=== PATIENT | female | born 2000 | race Caucasian/White ===

== ENCOUNTER 2020-03-21 20:03 | Emergency (ER) | payer MEDICAID, SELFPAY ==
[2020-03-21 20:21] VITALS: BP 106/70; PULSE 86; RESP 14; TEMP 36.8; O2SAT 100; BMI 23.1
[2020-03-21 20:40] LABS: Add Urine Microscopic? NO
[2020-03-21 20:45] VITALS: BP 101/62; PULSE 74; RESP 16; O2SAT 98
[2020-03-21 20:46] LABS: Bilirubin Urine Neg (Negative); Blood Urine Neg (Negative); Glucose Urine UA Norm (Normal); Ketones Urine Negative (Negative); Leukocyte Esterase Urine Negative (Negative); Nitrate Urine Negative (Negative); Protein Urine Neg (Negative); Specific Gravity, Urine 1.015 (1.005-1.030); Urine Appearance Clear (CLEAR); Urine Color Yellow (Yellow); Urobilinogen Urine 1 mg/dL (Negative); pH Urine 7 (5-7)
[2020-03-21 20:47] LABS: Basophils % 0.2 %; Eosinophils # 0.1 10^3/uL (0.0-0.8); Eosinophils % 1.1 %; Hematocrit 33.3 % (37.0-47.0); Hemoglobin 10.9 g/dL (11.5-15.3); Lymphocytes # 1.8 10^3/uL (0.8-4.8); Lymphocytes % 21.7 %; Mean Corpuscular HGB Conc 32.7 g/dL (30.0-36.0); Mean Corpuscular Hemoglobin 29.1 pg (28.0-34.0); Mean Corpuscular Volume 88.8 fL (81-99); Mean Platelet Volume 9.9 fL (7.4-10.4); Monocytes # 0.5 10^3/uL (0.2-0.9); Monocytes % 5.6 %; Neutrophils # 5.97 10^3/uL (1.8-7.7); Nucleated Red Blood Cells % 0 %; Platelet Count 300 10^3/cmm (130-400); Red Blood Count 3.75 10^6/uL (4.1-5.3); Red Cell Distribution Width 13.2 % (12.1-15.1); White Blood Count 8.4 10^3/uL (4.0-10.0)
--- NOTE | 2020-03-21 20:55 | ED_ITS ---
HPI - Abdominal Pain General: Chief Complaint: Abdominal Pain Stated Complaint: 17 weeks preg?? Time Seen by Provider: 03/21/20 20:28 Source: patient Mode of arrival: ambulatory Limitations: no limitations History of Present Illness: HPI narrative: 19-year-old female who states she is currently 18 weeks . She states she has had some lower abdomen cramping she rates it a 3 out of 10. She states she has had some clear discharge and increased urination today. She denies any fever. She denies any vaginal bleeding. Denies any vomiting or diarrhea. Associated Symptoms: Denies chills, diarrhea, dysuria, fever(s), nausea and vomiting Related Data: Date of Last Menstrual Period: 11/09/19 Review of Systems Const: Denies: fever(s), chills, body aches or change in appetite Eyes: Denies: blurry vision or eye discomfort ENMT: Denies: throat pain or dental pain Card: Denies: chest pain Resp: Denies: dyspnea GI: Denies: abdominal pain, nausea, vomiting or diarrhea : Denies: dysuria Musc: Denies: neck pain or back pain Skin/Breast: Denies: rash Neuro: Denies: headache(s) Psych: Denies: depression Ronnie/Lymph: Denies: easy bruising All/Imm: Denies: urticaria [facility] ED Female Reproductive History: Date of last menstrual period: 11/09/19 : 3 Physical Exam Const: COMMON NORMALS: no acute distress, patient oriented x3 and healthy appearing HENMT: COMMON NORMALS: normocephalic and atraumatic HEAD & SCALP: normocephalic and atraumatic Eye: COMMON NORMALS: Equal, round and reactive pupils present and EOMs intact bilaterally PUPIL: Yes Equal, round and reactive pupils present Neck/C-Spine: COMMON NORMALS: full ROM and supple Chest: COMMONS NORMALS: normal inspection of the chest and normal palpation of entire chest wall Resp: COMMON NORMALS: normal respiratory effort, No retractions, No use of accessory muscles and clear to auscultation bilaterally AUSCULTATION: clear to auscultation bilaterally Cardio: COMMON NORMALS: regular rate, regular rhythm and No murmurs present (Cardio) RATE: regular rate RHYTHM: regular rhythm GI: COMMON NORMALS: Normal to inspection, nondistended, normoactive bowel sounds present, Soft to palpation, non-tender and no masses PALPATION: Yes Soft to palpation OTHER: gravid uterus Extremity: COMMON NORMALS: normal to inspection and full ROM Neuro: COMMON NORMALS: patient oriented x3, moves all extremities and no focal motor deficits Psych: COMMON NORMALS: mental status grossly normal, Normal thought process present and cooperative THOUGHT PROCESS: Normal thought process present Skin: COMMON NORMALS: no rashes or lesions noted and no wounds GENERAL SKIN EXAM: no rashes or lesions noted Course Vital Signs: Vital signs: Vital Signs Temperature 98.3 F 03/21/20 20:21 Pulse Rate 74 03/21/20 20:45 Respiratory Rate 16 03/21/20 20:45 Blood Pressure 101/62 03/21/20 20:45 Pulse Oximetry 98 03/21/20 20:45 MDM - Abdominal Pain MDM Narrative: Medical decision making narrative: Patient presents with abdominal pain and that is likely round ligament pain. Her bedside ultrasound shows an IUP consistent with dates. Her blood work and urinalysis h ere is normal. She has no signs of appendicitis. She is stable for discharge and is to follow-up with her OB and return if worsening. Lab Data: Labs: Lab Results 03/21/20 03/21/20 03/21/20 Range/Units 20:30 20:40 20:40 WBC 8.4 (4.0-10.0) 10^3/ uL RBC 3.75 L (4.1-5.3) 10^6/u L Hgb 10.9 L (11.5-15.3) g/dL Hct 33.3 L (37.0-47.0) % MCV 88.8 (81-99) fL MCH 29.1 (28.0-34.0) pg MCHC 32.7 (30.0-36.0) g/dL RDW 13.2 (12.1-15.1) % Plt Count 300 (130-400) 10^3/c mm MPV 9.9 (7.4-10.4) fL Neut % (Auto) 71.0 % Lymph % (Auto) 21.7 % Meriwether % (Auto) 5.6 % Eos % (Auto) 1.1 % Baso % (Auto) 0.2 % Neut # (Auto) 5.97 (1.8-7.7) 10^3/u L Lymph # (Auto) 1.8 (0.8-4.8) 10^3/u L Meriwether # (Auto) 0.5 (0.2-0.9) 10^3/u L Eos # (Auto) 0.1 (0.0-0.8) 10^3/u L Baso # (Auto) 0.0 (0.0-0.1) 10^3/u L Nucleated RBC % (a uto) 0 % Nucleated RBCs # 0.0 /100WBC Sodium 137 (136-145) mmol/L Potassium 4.3 (3.5-5.1) mmol/L Chloride 103 (98-107) mmol/L Carbon Dioxide 24 (22-29) mmol/L Anion Gap 14.3 (5-19) BUN 11 (6-20) mg/dL Creatinine 0.6 (0.5-0.9) mg/dL GFR Calculation 126.2 (90-130) mL/min Glucose 92 (65-115) mg/dL Calcium 9.4 (8.5-10.5) mg/dL Total Bilirubin 0.2 (0.15-1.2) mg/dL AST 11 (0-32) U/L ALT 7 (0-33) U/L Alkaline Phosphata se 58 (35-105) IU/L Total Protein 6.7 (6.6-8.7) g/dL Albumin 3.7 (3.5-5.2) g/dL Globulin 3.0 (1.3-4.6) g/dL Ser , [place] [address].00 mIU/mL Urine Color Yellow (Yellow) Urine Appearance Clear (CLEAR) Urine pH 7 (5-7) Ur Specific Gravit y 1.015 (1.005-1.030) Urine Protein Neg (Negative) Urine Glucose (UA) Norm (Normal) Urine Ketones Negative (Negative) Urine Blood Neg (Negative) Urine Nitrate Negative (Negative) Urine Bilirubin Neg (Negative) Urine Urobilinogen 1 H (Negative) mg/dL Ur Leukocyte Elizabeth ase Negative (Negative) Discharge Plan Discharge Patient Disposition: Home Clinical Impression: Abdominal pain during Qualifiers: Trimester: second trimester Qualified Code(s): O26.892 - Other specified related conditions, second trimester Condition: Stable Discharge Orders: Discharge Order (Routine); Ordered 03/21/20 Ordered By: Antonieta Bolaños Referrals: Christina Bunch MD [Primary Care Provider] - 1-3 days Discharge Diet: Advance as tolerated Discharge Activity: Resume usual activity Patient Instructions: Abdominal Pain (ED) Coding Level of Care Code ED Financial Services Officer for Chg Fwd Exam Comprehensive
[2020-03-21 21:20] LABS: Alanine Aminotransferase 7 U/L (0-33); Albumin Level 3.7 g/dL (3.5-5.2); Alkaline Phosphatase 58 IU/L (35-105); Anion Gap 14.3 (5-19); Aspartate Amino Transferase 11 U/L (0-32); Blood Urea Nitrogen 11 mg/dL (6-20); Calcium 9.4 mg/dL (8.5-10.5); Carbon Dioxide 24 mmol/L (22-29); Chloride 103 mmol/L (98-107); Glomerular Filtration Rate 126.2 mL/min (90-130); Glucose 92 mg/dL (65-115); Osmolality Calculated 283 mOsm/kg (285-295); Potassium 4.3 mmol/L (3.5-5.1); Sodium 137 mmol/L (136-145); Total Bilirubin 0.2 mg/dL (0.15-1.2); Total Protein 6.7 g/dL (6.6-8.7)
== END 2020-03-21 21:28 | disposition home or self-care (01) ==
PROVIDERS: Physician Assistant; Emergency Provider Emergency Medicine; PCP Obstetrics & Gynecology
DX: O26.892 Other specified pregnancy related conditions, second trimester (principal); R10.9 Unspecified abdominal pain; Z3A.18 18 weeks gestation of pregnancy
CPT/HCPCS: 12345; 80053; 81003; 84702; 85025; 99282

== ENCOUNTER → 2020-05-02 10:16 | Outpatient (BNVA) | payer MEDICAID, SELFPAY | PROVIDERS: PCP Obstetrics & Gynecology; Visit Provider Nurse Practitioner Family | DX: J02.9 Acute pharyngitis, unspecified (principal); J06.9 Acute upper respiratory infection, unspecified; B96.89 Other specified bacterial agents as the cause of diseases classified elsewhere | CPT/HCPCS: 87071; 87880 ==

== ENCOUNTER 2020-05-11 08:45 | Outpatient (CLI) | payer MEDICAID, SELFPAY ==
[2020-05-11 08:45] VITALS: RESP 18; TEMP 36.6; BMI 23.0
[2020-05-11 09:04] VITALS: BP 87/64; PULSE 70
[2020-05-11 09:34] VITALS: BP 93/62; PULSE 68
[2020-05-11] MEDS: alum-mag-hydroxide-sime 30 mL UDC PO (09:35)
[2020-05-11 09:56] VITALS: BP 93/62; PULSE 68
== END 2020-05-11 09:50 | disposition home or self-care (01) ==
LOC: OPOB 08:56 → OBGYN 08:57
PROVIDERS: PCP Obstetrics & Gynecology; Visit Provider Family Medicine
DX: O26.899 Other specified pregnancy related conditions, unspecified trimester (principal); Z3A.00 Weeks of gestation of pregnancy not specified; R10.9 Unspecified abdominal pain
CPT/HCPCS: 99211

== ENCOUNTER 2020-06-27 20:58 | Outpatient (CLI) | payer MEDICAID, SELFPAY ==
--- NOTE | 2020-06-27 21:41 | US_ITS ---
WS: [id number] ULTRASOUND OB LIMITED TECHNIQUE: Limited ultrasound examination of the fetus. CLINICAL INFORMATION: Decreased Movement - Low Baseline COMPARISON: None. FINDINGS: Cervix measures 4.2 cm Single interuterine gestation. presentation is cephalic Placental location is anterior. Placenta grade: 0. heart rate 131 BPM. Normal BRIE 11.7 cm Gestational age 31 weeks 6 days. Estimated delivery August 23, 2020 Biophysical profile 8 out of 8. breathin movement: 2 tone: 2 Amniotic fluid: 2 IMPRESSION 1. Normal biophysical profile 8 out of 8 2. Cervix measures 4.2 cm
[2020-06-27 22:10] VITALS: BMI 24.3
[2020-06-27 22:39] LABS: Bilirubin Urine Neg (Negative); Blood Urine Neg (Negative); Glucose Urine UA Norm (Normal); Ketones Urine 1+ (Negative); Nitrate Urine Negative (Negative); Protein Urine Neg (Negative); Specific Gravity, Urine 1.015 (1.005-1.030); Sulfosalicylic Acid Urine Negative (Negative); Urine Appearance Cloudy (CLEAR); Urine Color Yellow (Yellow); pH Urine 8 (5-7)
[2020-06-27 22:40] LABS: Leukocyte Esterase Urine Negative (Negative); Urobilinogen Urine 4 mg/dL (Negative)
[2020-06-27 22:43] LABS: Add Urine Culture? No; Amorphous Sediment Urine 2+ /hpf; Bacteria Urine 1+ /hpf; RBC Urine RARE /hpf (0-2); WBC Urine 0-4 /hpf (0-5)
[2020-06-27 23:00] VITALS: RESP 16; TEMP 36.9
== END 2020-06-27 23:05 | disposition home or self-care (01) ==
LOC: OPOB 21:03 → OBGYN 21:04
PROVIDERS: PCP Obstetrics & Gynecology; Visit Provider Family Medicine
DX: O36.8190 Decreased fetal movements, unspecified trimester, not applicable or unspecified (principal); Z3A.00 Weeks of gestation of pregnancy not specified
CPT/HCPCS: 59025; 76815; 76819; 81001; 99211

== ENCOUNTER 2022-02-17 03:47 | Emergency (ER) | payer BC, MEDICAID, SELFPAY ==
[2022-02-17 03:47] VITALS: BP 130/80; PULSE 89; RESP 18; TEMP 36.8; O2SAT 99; BMI 21.4
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
[2022-02-17 05:12] VITALS: BP 114/73; PULSE 96; RESP 16; O2SAT 97
--- NOTE | 2022-02-17 12:27 | DCPLANNER ---
Addendum entered by Margi Kamara 02/24/22 08:49: Patient had a follow up appointment scheduled for a clinical assessment on 02.22.22 - patient did not attend appointment. Patient had a follow up appointment scheduled for a phone assessment on 02.20.22 for therapy - patient did attend appointment. Original Note: revenue manager had message to schedule a follow up appointment with [facility]. revenue manager sent an email to Deisi Holcomb at [facility] for depression. Patients information will be printed and reviewed. Clinic will call patient with appointment information.
--- NOTE | 2022-03-24 12:22 | PC.NURSE ---
PT CALLED AND REQUESTED A WORK NOTE FOR PERMISSION TO RETURN TO WORK D/T HER JOB THREATENING HER WITH TERMINATION. PT ASKED THAT NOTE BE FAXED TO [phone]. PATIENT GAVE VERBAL PERMISSION FOR FAX TO BE SENT. ON 03/24/2022
== END 2022-02-17 05:14 | disposition home or self-care (01) ==
PROVIDERS: Emergency Provider Emergency Medicine; PCP Obstetrics & Gynecology
DX: F32.A Depression, unspecified (principal)
CPT/HCPCS: 99283

== ENCOUNTER 2022-07-11 13:54 | Emergency (ER) | payer BC, MEDICAID, SELFPAY ==
[2022-07-11 14:29] VITALS: BP 106/62; PULSE 69; RESP 18; TEMP 36.4; O2SAT 100; BMI 20.5
--- NOTE | 2022-07-11 15:30 | W.ED.HA ---
HPI - Headache General: Chief Complaint: Headache Stated Complaint: headache Time Seen by Provider: 07/11/22 15:19 History of Present Illness: Patient is a 22-year-old female comes to the ED with migraine headache. Patient states she has a history of migraine headaches and this headache is just like her past migraine headaches. Headache started today when she woke up. Pain is located in the top of her head. She rates her headache 8 out of 10. She endorses photophobia. She has been having nausea and has had multiple episodes of emesis today. She has not taken any as needed medications for headaches today. Denies any vision changes, numbness or tingling or weakness to 1 side of her body or face. Patient denies any chance of being and has nexaplanon implant for control. Associated symptoms: Reports nausea and vomiting; Deny chest pain, fever(s) or rash Review of Systems Const: Denies: fever(s), chills or fatigue Eyes: Reports: photophobia; Denies: change in vision or eye discomfort ENMT: Denies: throat pain, odynophagia, nasal discharge or nasal congestion Card: Denies: chest pain, palpitations, edema, swelling of feet/ankles, dyspnea on exertion or orthopnea Resp: Denies: dyspnea, productive cough or non-productive cough GI: Reports: nausea and vomiting; Denies: abdominal pain, diarrhea, constipation or hematochezia : Denies: flank pain, dysuria or hematuria Musc: Denies: neck pain, back pain or extremity swelling Skin/Breast: Denies: rash or new lesions Neuro: Reports: headache(s); Denies: numbness in extremities or weakness in extremities [facility] ED PFSH: Medical History Migraines No pertinent family history Social History Smoking and tobacco status: never smoked Female Reproductive History: Date of last menstrual period: 11/09/19 Physical Exam Const: COMMON NORMALS: no acute distress, patient oriented x3 and alert GENERAL APPEARANCE: cooperative HENMT: COMMON NORMALS: normocephalic HEAD & SCALP: normocephalic MOUTH: Normal oral and palatal mucosa present THROAT: posterior oropharynx normal and uvula midline Eye: COMMON NORMALS: Equal, round and reactive pupils present and EOMs intact bilaterally GENERAL EYE: appearance normal, both eyes and all related structures PUPIL: Yes Equal, round and reactive pupils present Neck/C-Spine: COMMON NORMALS: supple GENERAL: Yes normal visual inspection Lymph: LYMPHATIC: no lymphadenopathy noted Resp: COMMON NORMALS: normal respiratory effort, No retractions, No use of accessory muscles and clear to auscultation bilaterally AUSCULTATION: clear to auscultation bilaterally Cardio: COMMON NORMALS: regular rate, regular rhythm, S1 normal heart sound present, S2 normal heart sound present, No gallops present (Cardio), No clicks present (Cardio), No murmurs present (Cardio) and Peripheral pulses 2+ throughout RATE: regular rate RHYTHM: regular rhythm HEART SOUNDS: S1 normal heart sound present and S2 normal heart sound present PERIPHERAL PULSES: Peripheral pulses 2+ throughout GI: COMMON NORMALS: Normal to inspection, nondistended, normoactive bowel sounds present, Soft to palpation, non-tender and no masses PALPATION: Yes Soft to palpation : COMMON NORMALS: Yes no CVA tenderness BLADDER/KIDNEY EXAM: Yes no CVA tenderness Back/Pelvis: COMMON NORMALS: no CVA tenderness Extremity: GENERAL: Yes normal exam except as noted Neuro: COMMON NORMALS: patient oriented x3, CN's II-XII intact bilaterally, moves all extremities, no focal motor deficits and no sensory deficits noted SENSORIUM/ORIENTATION: Yes alert COORDINATION/BALANCE: [id number] test normal SPEECH: speech normal SENSORY EXAM: Yes extremities (intact) MOTOR EXAM: 5/5 motor strength present throughout COORDINATION: [id number] test normal Skin: COMMON NORMALS: no rashes or lesions noted GENERAL SKIN EXAM: no rashes or lesions noted and dry skin Course Vital Signs: Vital signs: Vital Signs Temperature 97.6 F 07/11/22 14:29 Pulse Rate 69 07/11/22 14:29 Respiratory Rate 18 07/11/22 14:29 Blood Pressure 106/62 07/11/22 14:29 Pulse Oximetry 100 07/11/22 14:29 Oxygen Delivery Me thod 07/11/22 14:29 MDM - Headache Medical Decision Making Patient is a 22-year-old female comes to the ED with migraine headache. Patient states she has a history of migraine headaches and this headache is just like her past migraine headaches. Headache started today when she woke up. Pain is located in the top of her head. She rates her headache 8 out of 10. She endorses photophobia. She has been having nausea and has had multiple episodes of emesis today. Denies any neurodeficits. Vitals are stable. Exam of patient is benign. Patient was given IV migraine cocktail and her headache improved greatly. She is ready to go home and rest. She is diagnosed with migraine headache and was stable for discharge home. Told to follow-up with PCP in the next 5 to 7 days for reevaluation. Return to ED precautions given. Patient understood and agreed with plan. Discharge Plan Discharge Patient Disposition: Home Clinical Impression: Migraine headache Qualifiers: Migraine type: unspecified Status migrainosus presence: without status migrainosus Intractability: not intractable Qualified Code(s): G43.909 - Migraine, unspecified, not intractable, without status migrainosus Condition: Stable Prescriptions: No Action prenat.vits,garrett,[id number]-acwnl Tablet 1 tab PO DAILY Lexapro 10 mg tablet 10 mg PO DAILY Qty: 60 0RF Discharge Orders: Discharge ED (Routine); Ordered 07/11/22 Ordered By: Crow Ortiz Referrals: Christina Bunch MD [Primary Care Provider] - Discharge Diet: Regular Discharge Activity: Increase activity as tolerated Patient Instructions: Migraine Headache (ED) Activity Restrictions/Additional Instructions: Follow-up with medical provider as directed in the next 5 to 7 days for reevaluation. Continue taking all previously prescribed medications. Return to the ER or your medical provider if condition worsens. Please read and understand discharge instructions. Thank you for choosing [facility] for your healthcare needs today. Please realize this is an emergency room and that we are providing you with a medical screening exam and this may not be complete and all inclusive of all the testing and or work up that you may need to determine your ailment or severity of your illness. It is very important that you follow up as instructed or that you return to the Emergency Department should you have concerns or if your condition changes or worsens in any way. Coding Level of Care Code ED Pouch Maker for Devang [place] Exam Comprehensive
[2022-07-11] MEDS: dexamethasone 10 mg/mL INJ IVP (15:59)
[2022-07-11] MEDS: metoclopramide 5 mg/mL SDV 2 mL 10 MG IVP (15:59)
[2022-07-11] MEDS: ketorolac 30 mg/mL INJ IVP (16:00)
[2022-07-11] MEDS: diphenhydrAMINE 50 mg/mL SDV 1mL 25 MG IVP (16:00)
[2022-07-11] MEDS: sodium chloride 0.9% 1,000 ML 999 ML IV (16:01)
[2022-07-11 17:04] VITALS: BP 113/70; PULSE 67; RESP 13; TEMP 36.6; O2SAT 100
== END 2022-07-11 16:52 | disposition home or self-care (01) ==
PROVIDERS: Emergency Provider Physician Assistant; PCP Obstetrics & Gynecology
DX: G43.909 Migraine, unspecified, not intractable, without status migrainosus (principal)
CPT/HCPCS: 96374; 96375; 99284; J1100; J1200; J1885; J2765; J7030

== ENCOUNTER 2025-03-06 17:19 | Emergency (ER) | payer BC, MEDICAID, SELFPAY ==
--- OUTSIDE RECORDS SUMMARY | 2020-09-21 10:30 | XMS_ITS | Continuity of Care Document ---
Author Organization [facility] Address [id number] [address] Phone Care Team Providers Care Wall Worker Name Role Phone Marita Sauer LCSWica Unavailable Unavailabl e Allergies, Adverse Reactions, Alerts Substance Reaction Status Criticality No Known Allergies Active No Inform ation Medications Medication Instructions Dosage Effective Dates (start - stop) Status Comments ferrous sulfate 325 mg (65 mg iron) tablet take 1 tablet by oral route every other day - Active Problems Condition Type Effective Dates (start - stop) Clini garrett Status Comments No Known Problems Procedures Procedure Date Finalize Template Workaround PSYTX PT&/FAMILY 30 MINUTES PSYTX PT&/FAMILY 30 MINUTES REMOVE DRUG IMPLANT DEVICE-Nexplanon Aug Etonogestrel implant system ,Nexplanon M CARE AFTER DELIVERY Finalize Template Workaround URINE TEST HOSPITAL DISCHARGE DAY OB US FOLLOW-UP PER FETUS - Global UMBILICAL ARTERY ECHO - Global 21 NON-STRESS TEST OFFICE/OUTPATIENT VISIT, EST URINALYSIS AUTO W/O SCOPE OB US LIMITED FETUS(S) - Global 021 UMBILICAL ARTERY ECHO - Global 21 NON-STRESS TEST Finalize Template Workaround Procedure Only URINALYSIS AUTO W/O SCOPE OB US LIMITED FETUS(S) - Global 021 UMBILICAL ARTERY ECHO - Global 21 NON-STRESS TEST OFFICE/OUTPATIENT VISIT EST URINALYSIS AUTO W/O SCOPE COMPLETE CBC W/AUTO DIFF WBC ROUTINE VENIPUNCTURE CULTURE AEROBIC IDENTIFY STREP B DNA AMP PROBE OB US LIMITED FETUS(S) - Global 021 UMBILICAL ARTERY ECHO - Global 21 URINALYSIS AUTO W/O SCOPE NON-STRESS TEST Finalize Template Workaround Procedure Only OB US FOLLOW-UP PER FETUS - Global UMBILICAL ARTERY ECHO - Global 21 OFFICE/OUTPATIENT VISIT, EST URINALYSIS AUTO W/O SCOPE COVID-19 PCR-Quest OB US LIMITED FETUS(S) - Global 021 UMBILICAL ARTERY ECHO - Global 21 NON-STRESS TEST OFFICE/OUTPATIENT VISIT, EST URINALYSIS AUTO W/O SCOPE OB US LIMITED FETUS(S) - Global 020 UMBILICAL ARTERY ECHO - Global 20 OFFICE/OUTPATIENT VISIT, EST URINALYSIS AUTO W/O SCOPE NON-STRESS TEST OB US FOLLOW-UP PER FETUS - Global UMBILICAL ARTERY ECHO - Global 20 NON-STRESS TEST OFFICE/OUTPATIENT VISIT, EST URINALYSIS AUTO W/O SCOPE OB US LIMITED FETUS(S) - Global 020 UMBILICAL ARTERY ECHO - Global 20 NON-STRESS TEST URINALYSIS AUTO W/O SCOPE Finalize Template Workaround Procedure Only OB US LIMITED FETUS(S) - 020 UMBILICAL ARTERY ECHO - Global 20 NON-STRESS TEST URINALYSIS AUTO W/O SCOPE Finalize Template Workaround Procedure Only OB US FOLLOW-UP PER FETUS - Global BIOPHYS PROFIL W/O NST - Global De UMBILICAL ARTERY ECHO - Global 20 OFFICE/OUTPATIENT VISIT, EST IMMUNIZATION ADMIN TDAP VACCINE >7 IM URINALYSIS AUTO W/O SCOPE COMPLETE CBC W/AUTO DIFF WBC GLUCOSE TEST ROUTINE VENIPUNCTURE OFFICE/OUTPATIENT VISIT, EST URINALYSIS AUTO W/O SCOPE Prophylaxis Adult OB US >/= 14 WKS SNGL FETUS - Global Apr OFFICE/OUTPATIENT VISIT, EST IMMUNIZATION ADMIN FLU VAC NO PRSV 4 HUMBEROT 6 Months+ 020 URINALYSIS AUTO W/O SCOPE OFFICE/OUTPATIENT VISIT EST URINALYSIS AUTO W/O SCOPE SEQUEN/INTEGRATE 2 Extraction, Erupted Tooth Or Exposed Dia t (Elevati Extraction, Erupted Tooth Or Exposed Dia t (Elevati EDR Approval Note OFFICE/OUTPATIENT VISIT, EST OB US NUCHAL TONNY 1 GEST - Global URINALYSIS AUTO W/O SCOPE SEQUEN/INTEGRATE 1 Resin-Based Composite One Surface, Posterior Resin-Based Composite Two Surfaces, Posterior EDR Approval Note Patient Left / No Show OB US < 14 WKS SINGLE FETUS - Global Jan Comprehensive Oral Evaluatio n New Or Established Bitewings Four Films Panoramic Film Intraoral Periapical First Film Intraoral Periapical Each Additional Film Intraoral Periapical Each Additional Film Intraoral Periapical Each Additional Film EDR Approval Note CYTOPATH, C/V, THIN LAYER OFFICE/OUTPATIENT VISIT EST CULT, (U) ROUTINE DRUG SCREEN URINALYSIS AUTO W/O SCOPE No Charge Lab Codes OBSTETRIC PANEL No Charge Lab Codes ROUTINE VENIPUNCTURE CHLAMYDIA/GONNORRHEA TRICHOMONAS VAGINALIS AMPLIF HEPATITIS C AB TEST No Charge Lab Codes No Charge Lab Codes No Charge Lab Codes No Charge Lab Codes THINPREP TIS PAP REFLEX HPV mRNA E6/E7 J NO CHARGE URINE TEST Finalize Template Workaround CARE AFTER DELIVERY URINE TEST OB US LIMITED FETUS(S) - Global 019 UMBILICAL ARTERY ECHO - Global 19 NON-STRESS TEST OFFICE/OUTPATIENT VISIT, EST URINALYSIS AUTO W/O SCOPE OB US LIMITED FETUS(S) UMBILICAL ARTERY ECHO NON-STRESS TEST Finalize Template Workaround Procedure Only OB US, LIMITED, FETUS(S) UMBILICAL ARTERY ECHO Duplicate Encounter OB US FOLLOW-UP PER FETUS - Global Aug- MIDDLE CEREBRAL ARTERY ECHO UMBILICAL ARTERY ECHO - Global 19 BIOPHYS PROFIL W/O NST - Global Ma URINALYSIS AUTO W/O SCOPE OFFICE/OUTPATIENT VISIT, EST OFFICE/OUTPATIENT VISIT, EST URINALYSIS AUTO W/O SCOPE STREPTOCOCCUS, GROUP B CULTURE 19 Finalize Template Workaround Behavioral Health Consult OFFICE/OUTPATIENT VISIT, EST URINALYSIS AUTO W/O SCOPE OFFICE/OUTPATIENT VISIT, EST URINALYSIS AUTO W/O SCOPE OB US FOLLOW-UP PER FETUS OB US, FOLLOW-UP, PER FETUS OFFICE/OUTPATIENT VISIT, EST IMMUNIZATION ADMIN TDAP VACCINE >7 IM URINALYSIS AUTO W/O SCOPE GLUCOSE TEST HEMOGLOBIN ROUTINE VENIPUNCTURE OFFICE/OUTPATIENT VISIT, EST URINALYSIS AUTO W/O SCOPE OB US >/= 14 WKS SNGL FETUS - Global May OFFICE/OUTPATIENT VISIT, EST IMMUNIZATION ADMIN FLU VAC NO PRSV 4 HUMBERTO 3 YRS+ URINALYSIS AUTO W/O SCOPE AFP TETRA ROUTINE VENIPUNCTURE PSYTX PT&/FAMILY 30 MINUTES OFFICE/OUTPATIENT VISIT, EST URINALYSIS AUTO W/O SCOPE OB US < 14 WKS SINGLE FETUS OB US < 14 WKS, SINGLE FETUS OFFICE/OUTPATIENT VISIT, NEW URINALYSIS AUTO W/O SCOPE Drug Tests Presumptive Any Number Of Yehuda g Classes URINE TEST URINE CULTURE, ROUTINE CPT 92371 2017 ABO GROUP & RHO(D) TYP (PP $10.25)CPTs 8 6900,66989 ANTIBODY SCREEN COMPLETE CBC W/AUTO DIFF WBC HEPATITIS B SURFACE AG EIA HEPATITIS C AB TEST HIV ANTIGEN W/HIV ANTIBODIES RPR RUBELLA ANTIBODY ASSAY THYROID STIM HORMONE ROUTINE VENIPUNCTURE Chlamydia/Gonoccus swab/urine 8 TRICHOMONAS ASSAY W/OPTIC NO CHARGE URINE TEST Advance Directives Directive Yes / No Effective Date File Name No Information Encounters Encounter Description Practice Location Reason(s) For Visit Diagnoses Date Provider Providers Copied on Encounter [facility], [id number]- [place], [address], [place] tel:[phone] Behavioral [facility] Integration Major depressive disorder non-psychotic recurrent, severe 1 Camacho Tony. [address], [place], [address], [place]. tel:[phone] Referring Provider: Cecily Sauer, [address] [place], [address] . tel:[phone] PSYTX PT&/FAMILY 30 MINUTES [facility], [address] [id number] 6050269KS- [place], [address], [place] tel:[phone] Behavioral [facility] Integration Major depressive disorder non-psychotic recurrent, severe 1 Camacho Tony. [address], [place], [address], [place]. tel:[phone] Referring Provider: Cecily Sauer, [address] [place], [address] . tel:[phone] [facility], [address] [id number] 5726198KK- [place], [address], [place] tel:[phone] [facility] F1 check (chief complaint) Encounter for routine follow-upEnco unter for insertion subdermal contraceptive 1 Alivia Vasquez. [address] [place], [place], [address], [place]. tel:[phone] Referring Provider: Christina Bunch , [address] [place], [address] . tel:[phone] HOSPITAL DISCHARGE DAY [facility], [address] Eosaa588S3 1045350WTS[place], [address], [place] tel:[phone] [facility] No Information 1 Marichuy Luz. [address] [place], [address], [place]. tel:[phone] Referring Provider: Natty Benedict, [address] [place], [address]. tel:[phone] OFFICE/OUTPA TIENT VISIT, [facility], [id number] 0717950MLSk[place], [address], [place] tel:[phone] [place] [address] routine (chief complaint) Matern care for oth or susp poor fetl grth, third tri, mok8Agrusjljl insufficiency in third trimester, single or unspecified fetusCentral nervous system malformation in fetus affecting obstetrical care, single or unspecified fetusSupervis ion of other high risk pregnancies, third trimesterMate rnal care for abnormality and damage, unsp, unspMatern care for oth or susp poor fetl grth, third tri, unsp 1 Angy Rodriges. [address], [place], [address], [place]. [phone] Referring Provider: Antelmo Montalvo, [address] [place], [address] . tel:[phone] [facility], [address] Yyeis513C9 8119431AKSk[place], [address], [place] tel:[phone] [place] [address] Matern care for oth or susp poor fetl grth, third tri, unspSupervisi on of other high risk pregnancies, third trimesterMate rn care for oth or susp poor fetl grth, third tri, fts1 1 Alivia Vasquez. [address] [place], [place], [address], [place]. tel:[phone] Referring Provider: Christina Bunch , [address] [place], [address] . tel:[phone] OFFICE/OUTPA TIENT VISIT EST [facility], [address] [id number] 8922304UX- [place], [address], [place] tel:[phone] [place] [address] Supervision of other high risk pregnancies, third trimesterPoor growth affecting management of mother, antepartum, single or unspecified fetusCentral nervous system malformation in fetus affecting obstetrical care, single or unspecified fetusFetal abnormality affecting management of mother, single or unspecified fetusEnctr for screening for growth retardationMa tern care for oth or susp poor fetl grth, third tri, unsp 1 Angy Rodriges. [address], [place], [address], [place]. tel:[phone] Referring Provider: Antelmo Montalvo, [address] [place], [address] . tel:[phone] [facility], [address] Xmehc639T9 7096344MT- [place], [address], [place] tel:[phone] [place] [address] Supervision of other high risk pregnancies, third trimesterAbno rmal ultrasoundPoo r growth affecting management of mother, antepartum, single or unspecified fetusMatern care for oth or susp poor fetl grth, third tri, unspEnctr for screening for growth retardation 1 Alivia Vasquez. [address] [place], [place], [address], [place]. tel:[phone] Referring Provider: Christina Bunch , [address] [place], [address] . tel:[phone] OFFICE/OUTPA TIENT VISIT, [facility], [address] Davco252G2 2519013ZJSkowhe[place], [address], [place] tel:[phone] [place] [address] routine (chief complaint) Intrauterine growth restriction (IUGR) affecting care of mother, third trimester, single gestationAcut e diarrheaStuff y noseSupervisi on of other high risk pregnancies, third trimester 1 Imelda Mauricio. [address] [place], [address], [place]. tel:[phone] Referring Provider: Luly Segura, [address] [place], [address]. tel:[phone] OFFICE/OUTPA TIENT VISIT, [facility], [address] Ynmfs530W1 1569566TGSkowhe[place], [place], [address], [place] tel:[phone] [place] [address] routine (chief complaint) Intrauterine growth restriction (IUGR) affecting care of mother, third trimester, single gestationSupe rvision of other high risk pregnancies, third trimesterMate rn care for oth or susp poor fetl grth, unsp tri, unsp 1 Angy Rodriges. [address], [place], [address], [place]. tel:[phone] Referring Provider: Antelmo Montalvo, [address] [place], [address] . tel:[phone] OFFICE/OUTPA TIENT VISIT, [facility], [address] Titzr241L9 7111168TDRush [place], [place], [address], [place] tel:[phone] [place] [address] routine (chief complaint) Intrauterine growth restriction (IUGR) affecting care of mother, third trimester, single gestationSupe rvision of other high risk pregnancies, third trimesterMate rn care for oth or susp poor fetl grth, unsp tri, unspEncounter for suprvsn of normal , third trimester 0-202 0 Imelda Mauricio. [address] [place], [address], [place]. tel:[phone] Referring Provider: Luly Segura, [address] [place], [address]. tel:[phone] OFFICE/OUTPA TIENT VISIT, EST [facility], [address] Awxzw383K4 7177300HWRush [place], [address], [place] tel:[phone] [place] [address] routine (chief complaint) Intrauterine growth restriction (IUGR) affecting care of mother, third trimester, single gestationSupe rvision of other high risk pregnancies, third trimesterEnco unter for suprvsn of normal , third trimester 0 Angy Rodriges. [address], [place], [address], [place]. [phone] Referring Provider: Antelmo Montalvo, [address] [place], [address] . tel:[phone] [facility], [address] Gyotr091A8 0363206ZCRush [place], [place], [address], [place] tel:[phone] [place] [address] Matern care for oth or susp poor fetl grth, third tri, unspEncounter for suprvsn of normal , third trimester 0 Alivia Vasquez. [address] [place], [place], [address], [place]. [phone] Referring Provider: Christina Bunch , [address] [place], [address] . tel:[phone] [facility], [address] Meoej196H2 4940908VJRush [place], [place], [address], [place] tel:[phone] [place] [address] Matern care for oth or susp poor fetl grth, third tri, unspMatern care for oth or susp poor fetl grth, unsp tri, unspEncounter for suprvsn of normal , third trimester 9- 0 Alivia Vasquez. [address] [place], [place], [address], [place]. tel:[phone] Referring Provider: Christina Bunch , [address] Dee [facility]alyformerly [facility] [place], [address] . tel:[phone] OFFICE/OUTPA TIENT VISIT, [facility], [address] Norzn265P8 6899593OLRush Hill, [place], [address], [place] tel:[phone] [place] [address] (chief complaint) Supervision of other high risk pregnancies, third trimesterPoor growth affecting management of mother, antepartum, single or unspecified fetusMatern care for oth or susp poor fetl grth, third tri, unspEncounter for other screening follow-upEnco unter for suprvsn of normal , third trimester 0 Alivia Vasquez. [address] [place], [place], [address], [place]. tel:[phone] Referring Provider: Christina Bunch , [address] [facility], [address] . tel:[phone] OFFICE/OUTPA TIENT VISIT, [facility], [address] Tryut484V6 6084403KJRush [place], [place], [address], [place] tel:[phone] [place] [phone] (chief complaint) Supervision of other high risk pregnancies, second trimesterRoun d ligament pain 0 Alivia Vasquez. [address] [place], [place], [address], [place]. tel:[phone] Referring Provider: Christina Bunch , [address], [facility] [place], [address] . tel:[phone] [facility], [address] [id number] 9886218GI- [place], [address], [place] tel:[phone] [facility] Encounter for dental exam and cleaning w/o abnormal findings 0 Eric Lee. [address] [place], [address], [place]. tel:[phone] Referring Provider: Rosa Yanez, [address] [place], [address]. tel:[phone] OFFICE/OUTPA TIENT VISIT, [facility], [address] Saoyg621S3 2592574BTRush [place], [place], [address], [place] tel:[phone] [place] [phone] (chief complaint) Supervision of other high risk pregnancies, second trimesterEnco unter for screening for malformations 0 Alivia Vasquez. [address] [place], [place], [address], [place]. [phone] Referring Provider: Christina Bunch , [address] [place], [address] . tel:[phone] OFFICE/OUTPA TIENT VISIT [facility], [address] Sjtzv850R2 4083663BQRush Hill, [place], [address], [place] tel:[phone] [place] [phone] (chief complaint) Encounter for screening for malformations Encounter for screening for other genetic defectsSuperv ision of other high risk pregnancies, second trimesterCons tipationInade quate housingEncntr for suprvsn of normal preg, unsp, second trimesterEnco unter for screening for chromosomal anomalies 0 Alivia Vasquez. [address] [place], [place], [address], [place]. tel:[phone] Referring Provider: Christina Bunch , [address] [place], [address] . tel:[phone] [facility], [address] Yytsh780P2 4710279NEMiami County Medical Centerel d, [place], [address], [place] tel:[phone] Dental [place] [phone] Encounter for dental exam and cleaning w/o abnormal findings 0 Yobani Sinha. [address] [place], [address], [place]. tel:[phone] Referring Provider: Ernestine Hilton, [address] [facility], [place], [address]. tel:[phone] OFFICE/OUTPA TIENT VISIT, EST [facility], [address] Zzexr858C4 [id number] [facility], [place], [place], [address], [place] tel:[phone] [place] [address] (chief complaint) Supervision of other high risk pregnancies, first trimesterEnco unter for screening for nuchal translucencyE ncounter for suprvsn of normal , first trimesterEnco unter for screening for chromosomal anomalies 0 Alivia Vasquez. [address] [place], [place], [address], [place]. tel:[phone] Referring Provider: Christina Bunch , [address] [place], [address] . tel:[phone] [facility], [address] Iszru763B1 0062104EGNortheast Kansas [facility], [place], [place], [address], [place] tel:[phone] Dental [place] [address] Encounter for dental exam and cleaning w/o abnormal findings 0 No Information [facility], [address] Jxaim257B4 4522192QBRush Hill, [place], [address], [place] tel:[phone] Family Medicine [facility] care (chief complaint) No Information 0 No Information [facility], [address] [id number] 8755440GQRush [place], [place], [address], [place] tel:[phone] Behavioral Health Integration Adjustment disorder with mixed anxiety and depressed mood 0 No Information [facility], [address] Mwcbf671G5 9891411VG- [place], [place], [address], [place] tel:[phone] [place] [address] Discord with neighbors, lodgers and landlord 0 [facility]. [address], [place], [address], [place]. tel:[phone] [facility], [address] Lptpc459N2 3571627AB- [place], [place], [address], [place] tel:[phone] [place] [address] Uterine size-date discrepancy, first trimesterPers onal history of comp of preg, chldbrth and the puerp 0 Alivia Vasquez. [address] [place], [place], [address], [place]. tel:[phone] Referring Provider: Christina Bunch , [address] [place], [address] . tel:[phone] [facility], [address] Wfzdc207H5 8943529VR- [place], [place], [address], [place] tel:[phone] Dental [place] [address] Encounter for dental exam and cleaning w/o abnormal findings 0 Yobani Sinha. [address] [place], [address], [place]. tel:[phone] Referring Provider: Ernestine Hilton, [address] [place], [address]. tel:[phone] OFFICE/OUTPA TIENT VISIT EST [facility], [address] Yoana226L0 0582535VGRush Hill, [place], [address], [place] tel:[phone] [place] [address] (chief complaint) History of prior with IUGR newbornSuperv ision of other high risk pregnancies, first trimesterEncn tr screen for infections w sexl mode of transmissEnco unter for screening for malignant neoplasm of cervixEncntr for gauge maker exam (general) (routine) w/o abn findingsEncou nter for suprvsn of normal , first trimester 0 Alivia Vasquez. [address] [place], [place], [address], [place]. tel:[phone] Referring Provider: Christina Bunch , [address] [place], [address] . tel:[phone] [facility], [address] Haijt245X7 3155675XB- [place], [address], [place] tel:[phone] [place] [address] Discord w/ landlord 0 [facility]. [address] [place], [place], [address], [place]. tel:[phone] [facility], [address] Wauhw211U2 8836353WS- [place], [place], [address], [place] tel:[phone] [place] [address] No Information 0 No Information [facility], [address] Ulykp889N1 5765379NX- [place], [place], [address], [place] tel:[phone] Family Medicine Encounter for test, result unknown 0 Alivia Vasquez. [address] [place], [place], [address], [place]. tel:[phone] Referring Provider: Christina Bunch , [address] [place], [address] . tel:[phone] [facility], [address] [id number] 4545074HRRush Hill, [place], [address], [place] tel:[phone] [place] [address] check (chief complaint) Encounter for routine follow-upEncn tr for gauge maker exam (general) (routine) w/o abn findings 9 Alivia Vasquez. [address] [place], [place], [address], [place]. tel:[phone] Referring Provider: Christina Bunch , [address] [place], [address] . tel:[phone] OFFICE/OUTPA TIENT VISIT, EST [facility], [address] Cjyaj468P1 8077895ZS- [place], [place], [address], [place] tel:[phone] [place] [address] (chief complaint) Enctr for screening for growth retardationMa tern care for oth or susp poor fetl grth, third tri, swv1Bwmmue for suprvsn of normal preg, unsp, third trimester Aug- 9 Alivia Vasquez. [address] [place], [place], [address], [place]. tel:[phone] Referring Provider: Christina Bunch , [address] [place], [address] . tel:[phone] [facility], [address] Wamyg699E7 5714728XURush Hill, [place], [address], [place] tel:[phone] [place] [address] Enctr for screening for growth retardation 9 Angy Rodriges. [address] [place], [place], [address], [place]. tel:[phone] [facility], [address] Ynuou881E8 4343078AJ- [place], [place], [address], [place] tel:[phone] [place] [address] Drug use complicating , third trimesterEnct r for screening for growth retardation 9 Donta Goldman. [address] [place], [address], [place]. tel:[phone] Referring Provider: Jones Longo, [address] [place], [address]. tel:[phone] [facility], [address] [id number] 2824172UQ- [facility], [facility] [place], [address], [place] tel:[phone] [place] [address] No Information 9 Alivia Vasquez. [address], [place], [place], [address], [place]. tel:[phone] Referring Provider: Christina Bunch , [address] [place], [address] . tel:[phone] OFFICE/OUTPA TIENT VISIT, [facility], [address] Drzzk380U3 5152498BD- [facility], [facility] [place], [address], [place] tel:[phone] [place] [address] (chief complaint) Uterine size-date discrepancy, third trimesterEnct r for screening for growth retardationEn cntr for suprvsn of normal preg, unsp, third trimester 9 Alivia Vasquez. [address] [place], [place], [address], [place]. tel:[phone] Referring Provider: Christina Bunch , [address] [place], [address] . tel:[phone] OFFICE/OUTPA TIENT VISIT, [facility], [address] Ubhme037D5 0948793CD- [facility] [place], [address], [place] tel:[phone] [place] [address] (chief complaint) Encntr for suprvsn of normal first preg, third trimesterEnco unter for screening for Streptococcus BEncntr for suprvsn of normal preg, unsp, third trimester 9 Alivia Vasquez. [address], [place], [place], [address], [place]. tel:[phone] Referring Provider: Christina Bunch , [address] [place], [address] . tel:[phone] [facility], [address] Pcasp638O1 9654795XA- [facility], [place], [place], [address], [place] tel:[phone] Behavioral Health Integration Adjustment disorder with mixed anxiety and depressed mood 9 No Information OFFICE/OUTPA TIENT VISIT, [facility], [address] Lvfdu257T8 2769558CTPars[facility], [place], [place], [address], [place] tel:[phone] [place] [address] (chief complaint) Anemia affecting in third trimesterEncn tr for suprvsn of normal first preg, third trimesterEncn tr for suprvsn of normal preg, unsp, third trimester 9 Alivia Vasquez. [address] [place], [place], [address], [place]. [phone] Referring Provider: Christina Bunch , [address] [place], [address] . tel:[phone] OFFICE/OUTPA TIENT VISIT, [facility] [facility], [id number]- [facility], [place], [place], [address], [place] tel:[phone] [place] [phone] (chief complaint) Encntr for suprvsn of normal first preg, third trimesterAnem ia affecting in third trimesterEncn tr for suprvsn of normal preg, unsp, third trimester 9 Alivia Vasquez. [address] [place], [place], [address], [place]. tel:[phone] Referring Provider: Christina Bunch , [address] [place], [address] . tel:[phone] [facility], [address] [id number] [place], [id number], [place] tel:[phone] [place] [address] Encounter for other screening follow-up 9 Angy Rodriges. [address] [place], [place], [address], [place]. tel:[phone] [facility], [id number]- [facility], [place], [place], [address], [place] tel:[phone] [place] [address] Encounter for other screening follow-up 9 Alivia Vasquez. [address] [place], [place], [address], [place]. tel:[phone] Referring Provider: Christina Bunch , [address] [place],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
--- OUTSIDE RECORDS SUMMARY | 2025-03-06 17:25 | XMS_ITS | Encounter Summary ---
Author Organization [facility] Address [address] [place] [address] Care Team Providers Care Residential Program Director Name Role Phone Dayami Lagos DO, Charles E Primary Care Provider Unavailable Encounter Details Date Type Department Care Team (Late st Contact Info) Description 06/20/2007 Outpatient Historical [facility]- [place] [id number] [place] [phone] Daniel Stock Jr., DO NO ADDRESS ON FILE Social History Tobacco Use Types Packs/Day Years Used Date Smoking Tobacco: Never Assessed Comments Unknown Sex and Gender Information Value Date Recorded Sex Assigned at Not on file 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
--- OUTSIDE RECORDS SUMMARY | 2025-03-06 17:25 | XMS_ITS | Encounter Summary ---
Author Organization [facility] Address [address] [place] [address] Care Team Providers Care Mammalogist Name Role Phone Dayami Lagos DO, Charles E Primary Care Provider Unavailable Encounter Details Date Type Department Care Team (Latest Contact Info) Description 12/31/2006 Outpatient Historical [facility] Plastic Surgery 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
--- OUTSIDE RECORDS SUMMARY | 2025-03-06 17:25 | XMS_ITS | Encounter Summary ---
Author Organization [facility] Address [address] [place] [address] Care Team Providers Care Weigher And Crusher Name Role Phone Dayami Lagos DO, Charles E Primary Care Provider Unavailable Encounter Details Date Type Department Care Team (Latest Contact Info) Description 11/28/2006 Outpatient [facility] [id number] [place] [phone] Juli Galeano FNP NO ADDRESS ON FILE Other Diseases of Nasal Cavity and Sinuses (Primary Dx) Social History Tobacco Use Types Packs/Day Years Used Date Smoking Tobacco: Never Assessed Comments Unknown Sex and Gender Information Value Date Recorded Sex Assigned at Not on file 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
--- OUTSIDE RECORDS SUMMARY | 2025-03-06 17:25 | XMS_ITS | Encounter Summary ---
Author Organization [facility] Address [address] [place] [address] Care Team Providers Care Plc Programmer Name Role Phone Dayami Lagos DO, Charles E Primary Care Provider Unavailable Encounter Details Date Type Department Care Team (Latest Contact Info) Description 10/29/2006 Outpatient Historical [facility] Medicine- [place] [id number] [place] [phone] Juli Galeano FNP NO ADDRESS ON FILE Viral Infection (Primary Dx); Fever Social History Tobacco Use Types Packs/Day Years Used Date Smoking Tobacco: Never Assessed Comments Unknown Sex and Gender Information Value Date Recorded Sex Assigned at Not on file 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
--- OUTSIDE RECORDS SUMMARY | 2025-03-06 17:25 | XMS_ITS | Clinical Summary ---
Author Organization [facility] Address [address] [place] [address] Care Team Providers Care Plastic Duplicator Name Role Phone Unavailable Primary Care Provider Unavailabl e Allergies No known active allergies Medications orphenadrine (NORFLEX) 100 mg Extended Release tablet Take 1 Tablet (100 mg) by mouth 2 times daily. 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 Gender Identity Not on file Sexual Orientation Not on file Last Filed Vital Signs Vital Sign Reading Time Taken Comments Blood Pressure 119/66 11/06/2019 2:15 PM CDT Pulse - - Temperature 36.7 C (98.1 F) 11/06/2019 2:15 PM CDT Respiratory Rate 20 11/06/2019 2:15 PM CDT Oxygen Saturation 100% 11/06/2019 2:15 PM CDT Inhaled Oxygen Concentration - - Weight 50.4 kg (111 lb 1.8 oz) 11/06/2019 2:15 P M CDT Height - - Body Mass Index - - Plan of Treatment Health Maintenance Due Date Last Done Comments DTAP/TDAP/TD VACCINES (6 - Tdap) 2009 02/11/2003, 11/03/1999, 02/17/1999, Additional history exists HPV VACCINES (1 - 3-dose series) 2013 CERVICAL CANCER SCREENING 2019 HPV/Cotest (21-29) 2019 PAP SMEAR 2019 INFLUENZA VACCINE (#1) 2025 HEPATITIS B VACCINES Completed 10/20/1999, 1998, 1998 [place]
--- OUTSIDE RECORDS SUMMARY | 2025-03-06 17:25 | XMS_ITS | Encounter Summary ---
Author Organization [facility] Address [address] [place] [address] Care Team Providers Care Pallet Repairer Name Role Phone Dayami Lagos DO, Charles E Primary Care Provider Unavailable Encounter Details Date Type Department Care Team (Latest Contact Info) Description 10/31/2006 Outpatient Historical [facility] [id number] [place] [phone] Juli Galeano FNP NO ADDRESS ON FILE Coxsackie Virus Inf (Primary Dx) Social History Tobacco Use Types Packs/Day Years Used Date Smoking Tobacco: Never Assessed Comments Unknown Sex and Gender Information Value Date Recorded Sex Assigned at Not on file 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
--- OUTSIDE RECORDS SUMMARY | 2025-03-06 17:25 | XMS_ITS | Encounter Summary ---
Author Organization [facility] Address [address] [facility] Attn: [place] [address] Care Team Providers Care Cro Name Role Phone Dayami Lagos DO, Charles E Primary Care Provider Unavailable Encounter Details Date Type Department Care Team (Latest Contact Info) Description 03/04/2000 Emergency Sailaja Olsen MD [address], [place] [phone] Social History Tobacco Use Types Packs/Day Years Used Date Smoking Tobacco: Never Assessed Comments Unknown Sex and Gender Information Value Date Recorded Sex Assigned at Not on file Legal 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
--- OUTSIDE RECORDS SUMMARY | 2025-03-06 17:25 | XMS_ITS | Encounter Summary ---
Author Organization [facility] Address [address] [place] [address] Care Team Providers Care Tool Specialist Name Role Phone Dayami Lagos DO, Charles E Primary Care Provider Unavailable Encounter Details Date Type Department Care Team (Latest Contact Info) Description 01/15/2007 Outpatient Historical [facility] [address] [place] [phone] Oswald Mota MD [address] [place] [phone] Benign Neoplasm of Skin of Other and Unspecified Parts of Face (Primary Dx) Social History Tobacco Use Types Packs/Day Years Used Date Smoking Tobacco: Never Assessed Comments Unknown Sex and Gender Information Value Date Recorded Sex Assigned at Not on file 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
--- OUTSIDE RECORDS SUMMARY | 2025-03-06 17:25 | XMS_ITS | Encounter Summary ---
Author Organization [facility] Address [address] [place] [address] Care Team Providers Care Fruit Bar Maker Name Role Phone Dayami Lagos DO, Charles E Primary Care Provider Unavailable Encounter Details Date Type Department Care Team (Latest Contact Info) Description 03/13/2007 Outpatient Historical [facility]astic Surgery 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
--- OUTSIDE RECORDS SUMMARY | 2025-03-06 17:25 | XMS_ITS | Clinical Summary ---
Author Organization [facility] Address [address] [facility] Attn: [place] [address] Care Team Providers Care Speedometer Inspector Name Role Phone Unavailable Primary Care Provider Unavailabl e Allergies No known active allergies Medications escitalopram oxalate (LEXAPRO) 10 mg tablet Take 10 mg by mouth daily. 04/21/2022 Active orphenadrine (NORFLEX) 100 mg Extended Release tablet Take 100 mg by mouth 2 times daily. 11/06/2019 Active orphenadrine (NORFLEX) 100 mg Extended Release tablet Take 1 Tablet (100 mg) by mouth 2 times daily. 20 Tablet 0 11/06/2019 Active Active Problems No known active problems Immunizations Immunization Administration Dates Next Due (M-M-R II/PRIORIX)(12 MO UP) MEASLES, MUMPS AND RUBELLA VIRUS VACCINE, 0.5 ML IM/SUBCUT 02/11/2003,10/20/1999 Dt Dtp Dtap Vaccine 02/11/2003, 0,02/17/1999,1998,1998 HIB, Unspecified Formulation 10/20/1999,11/04/18 99,1998 Hepatitis A Vaccine 02/11/2003 Hepatitis B Vaccine 10/20/1999,1998,1997 IPV/OPV 02/11/2003, 0,1998,1998 Social History Tobacco Use Types Packs/Day Years Used Date Smoking Tobacco: Never Smokeless Tobacco: Never Comments Unknown Sex and Gender Information Value Date Recorded Sex Assigned at Not on file Legal 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 Gender Identity Not on file Sexual Orientation Not on file Last Filed Vital Signs Vital Sign Reading Time Taken Comments Blood Pressure 104/68 05/02/2022 3:09 PM CDT Pulse 94 05/02/2022 3:30 PM CDT Temperature 37.3 C (99.1 F) 05/02/2022 3:09 PM CDT Respiratory Rate 18 05/02/2022 3:09 PM CDT Oxygen Saturation 99% 05/02/2022 3:09 PM CDT Inhaled Oxygen Concentration - - Weight 50.3 kg (111 lb) 05/02/2022 3:09 PM CDT Height 157.5 cm (5' 2 ) 05/02/2022 3:09 PM CDT Body Mass Index 20.3 05/02/2022 3:09 PM CDT Plan of Treatment Health Maintenance Due Date Last Done Comments DTAP/TDAP/TD VACCINES (6 - Tdap) 2009 02/11/2003, 11/03/1999, 02/17/1999, Additional history exists HPV VACCINES (1 - 3-dose series) 2013 CERVICAL CANCER SCREENING 2019 HPV/Cotest (21-29) 2019 PAP SMEAR 2019 INFLUENZA VACCINE (#1) 2025 HEPATITIS B VACCINES Completed 10/20/1999, 1998, 1998 Insurance [employer] [place] MEDICAID
[2025-03-06 17:26] VITALS: BP 103/74; PULSE 92; RESP 16; TEMP 36.8; O2SAT 98; BMI 17.4
--- NOTE | 2025-03-06 17:38 | USR_ITS ---
PROCEDURE INFORMATION: Exam: US Pelvis, Transvaginal, Non-Obstetric Exam date and time: 03/06/2025 6:19 PM Age: 24 years old Clinical indication: Pelvic pain and vaginal pain; Additional info: Lower abd pain, vaginal bleeding TECHNIQUE: Imaging protocol: Real-time transvaginal pelvic (non-obstetric) ultrasound with image documentation. Transvaginal imaging was used for better evaluation of the endometrium, adnexa, and/or cervix. COMPARISON: US OB lmt w/ BPP wo NST 06/27/2020 10:10 PM FINDINGS: Uterus: Uterus measures 6.3 cm sagittal diameter, 4.3 cm AP diameter, 3.8 cm in transverse diameter. Endometrial stripe measures 3 mm AP diameter which is normal. Small amount of fluid in the cervical canal. Right ovary/adnexa: Measures 2.6 x 2.3 x 1.4 cm in diameter with a volume of 4.29 mL. Contains follicles measuring up to 1 cm. Shows blood flow. No mass. Left ovary/adnexa: Measures 2.7 x 1.9 x 2.1 cm in diameter with a volume 5.68 mL. Multiple follicles measuring up to 0.7 cm. Shows blood flow. No mass. Urinary bladder: Urinary bladder is limited. Intraperitoneal space: Small amount of free fluid cul-de-sac. US/US transvaginal [id number] IMPRESSION: 1. No uterine abnormalities. 2. Small amount of fluid in the cervical canal. 3. Small amount of fluid in the cul-de-sac. 4. Follow-up beta hCG levels recommended.
[2025-03-06] MEDS: ondansetron 2 mg/ML SDV 2 mL 4 MG IVP (17:51)
[2025-03-06 17:59] VITALS: BP 122/77; PULSE 90; O2SAT 99
[2025-03-06 18:01] LABS: Hematocrit 38.8 % (36-47); Hemoglobin 12.70 g/dL (11.27-16.99); Mean Corpuscular HGB Conc 32.7 g/dL (30-55); Mean Corpuscular Hemoglobin 28.9 pg (27-33); Mean Corpuscular Volume 88.2 fl (85-98); Nucleated Red Blood Cells % 0 %; Platelet Count 261 10^3/cmm (157-399); Red Blood Count 4.40 10^6/uL (3.85-5.65); White Blood Count 4.97 10^3/uL (3.29-11.43)
--- NOTE | 2025-03-06 18:06 | ED_ITS ---
HPI - 2 General: Chief complaint: OB/Uterine Contractions Stated complaint: Possible Miscarrage Time Seen by Provider: 03/06/25 17:22 Source: patient Mode of arrival: ambulatory Limitations: no limitations History of Present Illness: Patient is a 24-year-old female who is presenting to the emergency department complaining of vaginal bleeding beginning yesterday. She states that on Sunday she took a test at home which was positive, but subsequently followed up with the clinic yesterday and had blood test that was negative. She states that since that clinic visit she has had reddish-brown bleeding that she has soaked through greater than 1 tampon an hour with. Reports a history of endometriosis. Also states this would have been her fifth , has history of 2 previous miscarriages as well. No history of ectopic or ovarian torsion. States that she has felt dizzy and lightheaded, and was falling asleep at the wheel on the drive over here. She reports her last normal menstrual period was beginning of January. Vital stable at this time, she is anxious and tearful. She is also noting some left lower quadrant abdominal pain. MD Complaint: abdominal pain and vaginal bleeding Onset (ago): day(s) Pain Consistency: constant Quality: Cramping Vaginal discharge: none Vaginal bleeding: light Date of Last Menstrual Period: 02/03/25 Associated symptoms: Reports abdominal pain and malaise; Deny dysuria, headache(s), nausea or vomiting Related Data Home Medications ?Medication ?Instructions ?Recorded ?Confirmed prenat.vits,garrett,uja-tmiv-zwsoz 1 tab PO DAILY 05/02/20 06/27/20 Previous Rx's ?Medication ?Instructions ?Recorded escitalopram oxalate 10 mg tablet 10 mg PO DAILY #60 t abs 02/17/22 (Lexapro) Allergies Allergy/AdvReac Type Severity Reaction Status Date / Time No Known Allergies Allergy Verified 05/02/20 10:21 Review of Systems 2 General: Reports: 10 or more systems reviewed and unremarkable except in HPI and below Const: Reports: malaise; Denies: fever(s), chills, change in appetite, change in weight or diaphoresis ENMT: Denies: throat pain or hoarseness Card: Reports: lightheadedness; Denies: chest pain or palpitations Resp: Denies: dyspnea, productive cough or wheezing GI: Reports: abdominal pain; Denies: nausea, vomiting, diarrhea, constipation, bloating, change in stool character or hematochezia : Reports: vaginal bleeding; Denies: flank pain, difficulty voiding, dysuria, urinary frequency or urinary urgency Musc: Denies: neck pain or back pain Skin/Breast: Denies: rash or new lesions Neuro: Reports: dizziness; Denies: headache(s) PFSH ED 2 PFSH: Medical History Psychiatric care Migraines No pertinent family history Social History Smoking and tobacco/nicotine status: never used tobacco/nicotine Female Reproductive History: Date of last menstrual period: 02/03/25 Physical Exam 2 Const: COMMON NORMALS: patient oriented x3, no limitations, healthy appearing, alert and well nourished GENERAL APPEARANCE: cooperative and anxious N UTRITIONAL APPEARANCE: thin ORIENTATION/CONSCIOUSNESS: Yes awake Eye: COMMON NORMALS: Equal, round and reactive pupils present, EOMs intact bilaterally and conjunctivae normal CONJUNCTIVA: Yes conjunctivae normal P UPIL: Yes Equal, round and reactive pupils present Neck/C-Spine: COMMON NORMALS: full ROM, supple, no meningeal signs and no JVD Resp: COMMON NORMALS: normal respiratory effort, No retractions, No use of accessory muscles and clear to auscultation bilaterally AUSCULTATION: clear to auscultation bilaterally, no crackles, no rales, no rhonchi and no wheezes Cardio: COMMON NORMALS: no JVD, regular rate, regular rhythm, No gallops present (Cardio), No clicks present (Cardio), No murmurs present (Cardio), No rub (Cardio) and Peripheral pulses 2+ throughout RATE: regular rate R HYTHM: regular rhythm PERIPHERAL PULSES: Peripheral pulses 2+ throughout GI: COMMON NORMALS: Normal to inspection, nondistended, normoactive bowel sounds present, Soft to palpation, No hepatosplenomegaly present and no masses AUSCULTATION: Yes normoactive bowel sounds PALPATION: Yes Soft to palpation, Yes Tenderness to palpation present (GI) Details: LLQ, No Guarding due to palpation present (GI), No Rigid due to palpation and Yes No hepatosplenomegaly present RECTAL EXAM: deferred : COMMON NORMALS: Yes no CVA tenderness BLADDER/KIDNEY EXAM: Yes no CVA tenderness Back/Pelvis: COMMON NORMALS: no CVA tenderness Extremity: COMMON NORMALS: normal to inspection and full ROM Neuro: COMMON NORMALS: patient oriented x3, moves all extremities, no focal motor deficits and no sensory deficits noted SENSORIUM/ORIENTATION: Yes alert MENINGEAL SIGNS: Yes no meningeal signs Psych: COMMON NORMALS: mental status grossly normal, cooperative and speech normal SPEECH: Yes normal speech Skin: COMMON NORMALS: no rashes or lesions noted GENERAL SKIN EXAM: no rashes or lesions noted Course 2 Vital Signs: Vital signs: Vital Signs Temperature 98.2 F 03/06/25 17:26 Pulse Rate 69 03/06/25 21:43 Respiratory Rate 14 03/06/25 21:43 Blood Pressure 110/68 03/06/25 21:43 Pulse Oximetry 100 03/06/25 21:43 Oxygen Delivery Me thod Room Air 03/06/25 21:00 MDM - OB/Uterine Contractions Medical Decision Making Patient resenting with vaginal bleeding today as well as left lower quadrant tenderness palpation, reports history of endometriosis. States she took at home positive test on Sunday, and had a negative test subsequently at the clinic yesterday. She was concerned that she was having another miscarriage, of which she had 2 previous. Reporting bleeding through greater than 1 tampon an hour, and the left lower quadrant pain, of which there was elicited tenderness to palpation on exam. Overall nontoxic-appearing however, and no signs of blood loss anemia. CBC confirms this normal hemoglobin and unremarkable overall. CMP was normal as well as her beta-hCG quantitative being less than 1, excluding any . Transvaginal ultrasound did not reveal any acute abnormalities, nonspecific fluid in the cervical canal which could be ruptured ectopic. However with her reporting worsening pain and negative , scan with abdomen and pelvis CT ordered and did not show any other acute explanation for the pain she is in. She did note relief after receiving Toradol through an IV, and working diagnosis at this time is a dysfunctional uterine bleeding of which she will be referred to [facility]. Stable for discharge otherwise and strict return precautions given. Lab Data 03/06/25 17:30 03/06/25 20:40 Radiology Impressions Transvaginal US 03/06/25 17:38 IMPRESSION: 1. No uterine abnormalities. 2. Small amount of fluid in the cervical canal. 3. Small amount of fluid in the cul-de-sac. 4. Follow-up beta hCG levels recommended. Abdomen/Pelvis CT 03/06/25 19:56 IMPRESSION: 1. Increased fluid and partially digested food stuff in the stomach. Increased fluid throughout the small bowel with dilatation, no obstruction or wall thickening. Findings suspicious for stasis or ileus. Wjhk-el-dhnejwkw amount material in the colon. 2. Possible mildly enlarged right ovary containing cysts. 3. Mild hepatomegaly. Laboratory Results WBC 4.97 10^3/uL (3.29-11.43) 03/06/25 17:30 RBC 4.40 10^6/uL (3.85-5.65) 03/06/25 17:30 Hgb 12.70 g/dL (11.27-16.99) 03/06/25 17:30 Hct 38.8 % (36-47) 03/06/25 17:30 MCV 88.2 fl (85-98) 03/06/25 17:30 MCH 28.9 pg (27-33) 03/06/25 17:30 MCHC 32.7 g/dL (30-55) 03/06/25 17:30 RDW 12.9 % (12.1-15.1) 03/06/25 17:30 Plt Count 261 10^3/cmm (157-399) 03/06/25 17:30 MPV 10.7 fL (7.4-10.4) H 03/06/25 17:30 Neut % (Auto) 63.0 % 03/06/25 17:30 Lymph % (Auto) 25.8 % 03/06/25 17:30 Petroleum % (Auto) 7.8 % 03/06/25 17:30 Eos % (Auto) 2.6 % 03/06/25 17:30 Baso % (Auto) 0.6 % 03/06/25 17:30 Neut # (Auto) 3.13 10^3/uL (1.8-7.7) 03/06/25 17:30 Lymph # (Auto) 1.3 10^3/uL (0.8-4.8) 03/06/25 17:30 Petroleum # (Auto) 0.4 10^3/uL (0.2-0.9) 03/06/25 17:30 Eos # (Auto) 0.1 10^3/uL (0.0-0.8) 03/06/25 17:30 Baso # (Auto) 0.0 10^3/uL (0.0-0.1) 03/06/25 17:30 Nucleated RBC % (auto) 0 % 03/06/25 17:30 Nucleated RBCs # 0.0 /100WBC 03/06/25 17:30 Sodium 139 mmol/L (136-145) 03/06/25 20:40 Potassium 4.0 mmol/L (3.5-5.1) 03/06/25 20:40 Chloride 107 mmol/L (98-107) 03/06/25 20:40 Carbon Dioxide 23 mmol/L (22-29) 03/06/25 20:40 Anion Gap 13.0 (5-19) 03/06/25 20:40 BUN 11 mg/dL (6-20) 03/06/25 20:40 Creatinine 0.5 mg/dL (0.5-0.9) 03/06/25 20:40 GFR Calculation 149.1 mL/min (90-130) H 03/06/25 20:40 Glucose 85 mg/dL (65-115) 03/06/25 20:40 Calculated Osmolality 287 mOsm/kg (285-295) 03/06/25 20:40 Calcium 8.8 mg/dL (8.5-10.5) 03/06/25 20:40 Ser , Semi-Qnt < 1.00 mIU/mL 03/06/25 17:30 Urine Color Yellow (Yellow) 03/06/25 17:55 Urine Appearance Cloudy (CLEAR) A 03/06/25 17:55 Urine pH 7.5 (5-7) 03/06/25 17:55 Ur Specific [place] 1.018 (1.005-1.030) 03/06/25 17:55 Urine Protein Negative (Negative) 03/06/25 17:55 Urine Glucose (UA) Negative (Normal) 03/06/25 17:55 Urine Ketones Negative (Negative) 03/06/25 17:55 Urine Blood 3+ (Negative) A 03/06/25 17:55 Urine Nitrate Negative (Negative) 03/06/25 17:55 Urine Bilirubin Negative (Negative) 03/06/25 17:55 Urine Urobilinogen 1.0 mg/dL (Negative) 03/06/25 17:55 Ur Leukocyte Esterase Negative (Negative) 03/06/25 17:55 Urine RBC >100 /hpf (0-2) H 03/06/25 17:55 Urine WBC 0-5 /hpf (0-5) 03/06/25 17:55 Ur Squamous Epith Cells 0-5 /hpf (0-5) 03/06/25 17:55 Amorphous Sediment 1+ /hpf 03/06/25 17:55 Urine Bacteria None seen /hpf (NONE) 03/06/25 17:55 Hyaline Casts 0.40 /lpf 03/06/25 17:55 Blood Type A Positive 03/06/25 17:30 Rho(D) Type Rh positive 03/06/25 17:30 All radiology interpretation(s) finalized by discharge Discharge Plan Discharge Patient Disposition: Home Clinical Impression: DUB (dysfunctional uterine bleeding), Ileus Condition: Stable Prescriptions: No Action prenat.vits,garrett,jja-gwus-uiehc Tablet 1 tab PO DAILY Lexapro 10 mg tablet 10 mg PO DAILY Qty: 60 0RF Discharge Orders: Discharge ED (Routine); Ordered 03/06/25 Ordered By: Jono Johnson Referrals: Christina Bunch MD [Primary Care Provider] Patient Instructions: Patient Portal & [place] Instructions Activity Restrictions/Additional Instructions: Discharge Instructions Summary Discharge Instructions: 24-year-old Female with Left Lower Quadrant Pain, Vaginal Bleeding, and Functional Ileus Summary of Hospital Course: - Presented with left lower quadrant pain and vaginal bleeding. - Transvaginal ultrasound negative for intrauterine or ectopic . - Serum quantitative hCG <1, excluding . - Laboratory evaluation (CBC, BMP) reassuring. - CT abdomen/pelvis: possible functional ileus. - Pain improved after ketorolac administration. --- 1. Vaginal Bleeding and Dysfunctional Uterine Bleeding (DUB): - The bleeding is most consistent with dysfunctional uterine bleeding (DUB), a diagnosis of exclusion after ruling out and structural causes.[1] https://pubmed.ncbi.nlm.nih.gov/90185808 [2] https://pubmed.ncbi.nlm.nih.gov/94164980 - DUB is common in reproductive-aged women and is typically benign, but persistent or recurrent symptoms warrant further evaluation.[3] https://pubmed.ncbi.nlm.nih.gov/91499300 [1] https://pubmed.ncbi.nlm.nih.gov/95052009 [2] https:/ /pubmed.ncbi.nlm.nih.gov/58402902 - First-line outpatient management options include: - Nonsteroidal anti-inflammatory drugs (NSAIDs): Reduce menstrual blood loss and pain; taken during menses.[3] https://pubmed.ncbi.nlm.nih.gov/19813372 [1] https://pubmed.ncbi.nlm.nih.gov/09307969 [4] https:/ /pubmed.ncbi.nlm.nih.gov/00010202 [5] https://pubmed.ncbi.nlm.nih.gov/29646900 [6] https://pubmed.ncbi.nlm.nih.gov/15731734 - Combined oral contraceptives (COCs): Regulate cycles and reduce bleeding; also provide contraception if needed.[1] https://pubmed.ncbi.nlm.nih.gov/15623877 [4] https://pubmed.ncbi.nlm.nih.gov/05970546 [5] https:/ /pubmed.ncbi.nlm.nih.gov/39620227 [6] https://pubmed.ncbi.nlm.nih.gov/83053442 - Levonorgestrel-releasing intrauterine device (LNG-IUS): Highly effective for heavy bleeding and provides contraception.[4] https://pubmed.ncbi.nlm.nih.gov/91853364 [5] https://pubmed.ncbi.nlm.nih.gov/12189287 [6] https:/ /pubmed.ncbi.nlm.nih.gov/31400767 - Tranexamic acid: Antifibrinolytic agent, taken during menses, reduces blood loss; avoid concomitant use with COCs.[4] https://pubmed.ncbi.nlm.nih.gov/90358339 [7] https://www.nejm.org/doi/full/10.1056/SMREnx4028566 [5] https://pubmed.ncbi.nlm.nih.gov/68093951 [6] https://pubmed.ncbi.nlm.nih.gov/34506477 - Cyclic oral progestins: For anovulatory bleeding, e.g., medroxyprogesterone acetate 10 mg daily for 10 days each month.[8] https://pubmed.ncbi.nlm.nih.gov/0855573 [1] https://pubmed.ncbi.nlm.nih.gov/43983598 - The [employer] College of Obstetricians and Gynecologists recommends medical management as initial therapy for stable patients.[9] https://www.acog.org/-/media/project/acog/acogorg/clinical/files/committee-opini on/articles//mtlbunwswx-fm-iuekd-nnbrlioo-fsppwkh-mbvxuolr-ee-lecawzwsyag-diqsgdahshin-age d-1.pdf [10] https://pubmed.ncbi.nlm.nih.gov/53226202 - Follow-up: Schedule outpatient follow-up with primary care or gynecology within 1?2 weeks to reassess bleeding pattern, review options, and consider further workup if bleeding persists or worsens.[1] https://pubmed.ncbi.nlm.nih.gov/98616452 [2] https://pubmed.ncbi.nlm.nih.gov/78353700 Indications for Urgent Return: - Heavy bleeding resulting in dizziness, syncope, tachycardia, or signs of hypovolemia. - Severe abdominal pain, fever, or new onset of vomiting. - Any new or concerning symptoms. --- 2. Functional Ileus: - Functional ileus is a transient impairment of intestinal motility without mechanical obstruction.[11] https://pubmed.ncbi.nlm.nih.gov/08509118 [12] https://pubmed.ncbi.nlm.nih.gov/71999288 - Most cases resolve with supportive care; surgery is rarely required.[12] https://pubmed.ncbi.nlm.nih.gov/19784690 - Management recommendations: - Diet: Gradual reintroduction of oral intake as tolerated. Start with clear liquids, advance to low-residue diet, then regular diet as bowel function returns.[12] https://pubmed.ncbi.nlm.nih.gov/90925952 - Early oral feeding: Associated with faster recovery of bowel function.[13] https://pubmed.ncbi.nlm.nih.gov/16585359 - Chewing gum: May stimulate bowel motility and reduce duration of ileus.[13] https://pubmed.ncbi.nlm.nih.gov/06546902 - Ambulation: Early mobilization is encouraged to promote gastrointestinal recovery.[12] https://pubmed.ncbi.nlm.nih.gov/50543380 [13] https://pubmed.ncbi.nlm.nih.gov/88245928 - Avoidance of constipating medications: Discontinue opioids and anticholinergics if possible.[11] https://pubmed.ncbi.nlm.nih.gov/90701153 [12] https://pubmed.ncbi.nlm.nih.gov/53011538 - Monitor for complications: Watch for increasing abdominal distension, pain, vomiting, or inability to tolerate oral intake. - Return precautions: Seek immediate care for: - Persistent vomiting or inability to tolerate fluids. - Increasing abdominal pain or distension. - Signs of bowel obstruction (no flatus, no bowel movements, severe pain). - Fever or signs of infection. --- 3. General Recommendations: - Follow up with [facility]. Await call to set up appointment. - Continue to monitor symptoms at home. - Maintain hydration and a balanced diet as tolerated. - Schedule follow-up with primary care provider for ongoing evaluation of vaginal bleeding and gastrointestinal symptoms. - If symptoms worsen or new symptoms develop, return to the emergency department. --- Patient Education Provided. References * Abnormal Uterine Bleeding https://pubmed.ncbi.nlm.nih.gov/94609395 . Limington JR, Carroll SK, Leonel RM. [employer]eless [employer]ician. 2004;69(8):1915-26. * Abnormal Uterine Bleeding in Premenopausal Women https://pubmed.ncbi.nlm.nih.gov/85579225 . Bianca N, Thu M. [employer]eless Family Physician. 2019;99(7):435-443. * How Best to Manage Dysfunctional Uterine Bleeding https://pubmed.ncbi.nlm.nih.gov/58259585 . Zara DL, David A, Bulmaro CL, Tony G, Givens V. The Journal of Family Practice. 2010;59(8):449-58. * Current Treatment of Dysfunctional Uterine Bleeding https://pubmed.ncbi.nlm.nih.gov/96396803 . Lv MY, Sybil DÍAZ, Br?zach RODAS. [employer]. 2004;47(3):159-74. doi:10.1016/j.maturitas.2002.08.002. * Nonsurgical Management of Heavy Menstrual Bleeding: A Systematic Review https://pubmed.ncbi.nlm.nih.gov/68406851 . Ru KA, Brenna DD, Barnes TL, et al. Obstetrics and Gynecology. 2013;121(3):632-643. doi:10.1097/AOG.0b134x0505934q2l. * Interventions for Heavy Menstrual Bleeding; Overview of Ani Reviews and Network [place]-Analysis https://pubmed.ncbi.nlm.nih.gov/16230623 . Michelet Nunez M, Oleg S, Raúl V, et al. The Ani Database of Systematic Reviews. 2021;5:VP244610. doi:10.1002/61039511.DX594049.pub2. * Uterine Fibroids https://www.nejm.org/doi/full/10.1056/KXXDzs6527477 . Fly WHITE. The [place] Journal of Medicine. 2015;372(17):1646-55. doi:10.1056/MSSSje2293760. * Management of Abnormal Uterine Bleeding https://pubmed.ncbi.nlm.nih.gov/0960770 . Luis CJ, Kd PF. Stateless Journal of Obstetrics and Gynecology. 1996;175(3 Pt 2):787-92. doi:10.1016/x7604-4456(52)02986-x. * Management of Acute Abnormal Uterine Bleeding in Non Reproductive-Aged Women https://www.acog.org/-/media/project/acog/acogorg/clinical/files/committee-denny attilajacek/articles/12/10/boicvhxkni-mx-thvsb-kumwyhai-tieelgf-uovuayaz-qm-zimghvskfrj-aeiqunyqrwg e-aged-1.pdf . [employer] College of Obstetricians and Gynecologists (2019). * ACOG Committee Opinion No. 557: Management of Acute Abnormal Uterine Bleeding in Non Reproductive-Aged Women https://pubmed.ncbi.nlm.nih.gov/22197551 . Obstetrics and Gynecology. 2013;121(4):891-896. doi:10.1097/01.AOG.6231098877.76722.9a. * Adynamic Ileus and Acute Colonic Pseudo-Obstruction https://pubmed.ncbi.nlm.nih.gov/58592851 . Na M, Polo MS. [facility]. 2008;92(3):649-70, ix. doi:10.1016/j.na.2008.01.002. * Ileus in Adults https://pubmed.ncbi.nlm.nih.gov/79892022 . Eusebio TO, Roxi B, Emma C, Lisa HH, Beryl JOAN. [employer]. 2017;114(29-30):508-518. doi:10.3238/arztebl.2017.0508. * Strategies to Reduce Ileus After Colorectal Surgery: A Qualitative Umbrella Review of the Collective Evidence https://pubmed.ncbi.nlm.nih.gov/47295367 . Brayan SH, Horesh N, Gardarlenea Z, et al. Surgery. 2023;175(2):280-288. doi:10.1016/j.surg.2022.10.005. Print Language: Faroese Coding Level of Care Code ED Diplomatic Interpreter/Translator for Devang Franklin
[2025-03-06 18:24] LABS: Glucose Urine UA Negative (Normal); Nitrate Urine Negative (Negative); Specific Gravity, Urine 1.018 (1.005-1.030)
[2025-03-06 18:29] LABS: Add Urine Microscopic? YES
[2025-03-06 18:42] LABS: UA Slide Review UA Slide Review Perf
[2025-03-06 19:00] VITALS: BP 100/72; PULSE 75; O2SAT 100
--- NOTE | 2025-03-06 19:56 | CTR_ITS ---
PROCEDURE INFORMATION: Exam: CT Abdomen And Pelvis With Contrast Exam date and time: 03/06/2025 8:05 PM Age: 24 years old Clinical indication: Abdominal pain; Localized; Left lower quadrant (llq); C/O llq pain; Additional info: Severe llq pain TECHNIQUE: Imaging protocol: Computed tomography of the abdomen and pelvis with contrast. Radiation optimization: All CT scans at this facility use at least one of these dose optimization techniques: automated exposure control; mA and/or kV adjustment per patient size (includes targeted exams where dose is matched to clinical indication); or iterative reconstruction. Contrast material: OMNI 350; Contrast volume: 80 ml; Contrast route: INTRAVENOUS (IV); COMPARISON: US transvaginal [id number] 03/06/2025 6:19 PM RADIATION DOSE METRICS: Total DLP (mGy-cm): 280.12 FINDINGS: Lower chest: Heart only partially included. Lungs are clear. Liver: Mild hepatomegaly. This could be related to a Ronnell's lobe. No mass. Gallbladder and biliary ducts: Partially contracted gallbladder. No calcified stones. No ductal dilation. Pancreas: Normal. No ductal dilation. Spleen: Normal. No splenomegaly. Adrenal glands: Normal. No mass. Kidneys and ureters: Normal. No hydronephrosis. Stomach and bowel: Some retained fluid or partially digested food stuff in the stomach. There is increased fluid throughout the small bowel with possibly some fecalization of the distal ileum. There is mild dilatation small bowel measuring up to 2.89 cm in diameter. No significant wall thickening. Findings suspicious for stasis/ileus. Plqg-pc-qwzvksdy amount of fecal material in the colon. Appendix: No evidence of appendicitis. Intraperitoneal space: Unremarkable. No free air. No significant fluid collection. Vasculature: Unremarkable. No abdominal aortic aneurysm. Lymph nodes: Unremarkable. No enlarged lymph nodes. Urinary bladder: Moderately distended. Reproductive: Possible mildly enlarged right ovary containing 9.6 and 7.4 mm cyst. Endometrial stripe measures 4.5 mm in diameter within limits. Bones/joints: Unremarkable. No acute fracture. Soft tissues: Unremarkable. CT/CT abdomen pelvis w con* [id number] IMPRESSION: 1. Increased fluid and partially digested food stuff in the stomach. Increased fluid throughout the small bowel with dilatation, no obstruction or wall thickening. Findings suspicious for stasis or ileus. Ycee-zj-lgucidow amount material in the colon. 2. Possible mildly enlarged right ovary containing cysts. 3. Mild hepatomegaly.
[2025-03-06] MEDS: iohexol 350 mg/mL 500 mL Btl (per mL) IV (20:06)
[2025-03-06 21:00] VITALS: BP 98/61; PULSE 71; O2SAT 98
[2025-03-06 21:18] LABS: Blood Urea Nitrogen 11 mg/dL (6-20); Calcium 8.8 mg/dL (8.5-10.5); Carbon Dioxide 23 mmol/L (22-29); Chloride 107 mmol/L (98-107); Creatinine Clr Calc Pharmacy 127.3061; Glucose 85 mg/dL (65-115); Potassium 4.0 mmol/L (3.5-5.1)
[2025-03-06 21:36] LABS: Anion Gap 13.0 (5-19); Osmolality Calculated 287 mOsm/kg (285-295); Sodium 139 mmol/L (136-145)
[2025-03-06 21:43] VITALS: BP 110/68; PULSE 69; RESP 14; O2SAT 100
--- NOTE | 2025-03-09 08:49 | DCPLANNER ---
message [facility] f/u
== END 2025-03-06 21:52 | disposition home or self-care (01) ==
PROVIDERS: Emergency Provider Physician Assistant; PCP Obstetrics & Gynecology
DX: N93.8 Other specified abnormal uterine and vaginal bleeding (principal); K56.7 Ileus, unspecified
CPT/HCPCS: 36415; 74177; 76830; 80048; 81001; 84702; 85025; 86900; 96374; 96375; 99285; J1885; J2405

== ENCOUNTER 2025-05-25 19:47 | Emergency (ER) | payer BC, MEDICAID, SELFPAY ==
--- OUTSIDE RECORDS SUMMARY | 2025-05-25 19:54 | XMS_ITS | Clinical Summary ---
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
--- OUTSIDE RECORDS SUMMARY | 2025-05-25 19:54 | XMS_ITS | Encounter Summary ---
Author Organization [facility] Address [address] [place] [address] Care Team Providers Care Dialysis Rn Name Role Phone Dayami Lagos DO, Charles E Primary Care Provider Unavailable Encounter Details Date Type Department Care Team (Latest Contact Info) Description 11/28/2006 Outpatient [facility] [id number] [place] [phone] Juli Galeano FNP NO ADDRESS ON FILE Other Diseases of Nasal Cavity and Sinuses (Primary Dx) Social History Tobacco Use Types Packs/Day Years Used Date Smoking Tobacco: Never Assessed Comments Unknown Sex and Gender Information Value Date Recorded Sex Assigned at Not on file 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
--- OUTSIDE RECORDS SUMMARY | 2025-05-25 19:54 | XMS_ITS | Clinical Summary ---
Author Organization [facility] Address [address] 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
--- OUTSIDE RECORDS SUMMARY | 2025-05-25 19:54 | XMS_ITS | Encounter Summary ---
Author Organization [facility] Address [address] [place] [address] Care Team Providers Care Kiln Car Unloader Name Role Phone Dayami Lagos DO, Charles E Primary Care Provider Unavailable Encounter Details Date Type Department Care Team (Late st Contact Info) Description 06/20/2007 Outpatient Historical [facility] Medicine- [place] [id number] [place] [address] [phone] Daniel Stock Jr., DO NO ADDRESS ON FILE Social History Tobacco Use Types Packs/Day Years Used Date Smoking Tobacco: Never Assessed Comments Unknown Sex and Gender Information Value Date Recorded Sex Assigned at Not on file 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
--- OUTSIDE RECORDS SUMMARY | 2025-05-25 19:54 | XMS_ITS | Encounter Summary ---
Author Organization [facility] Address [address] [place] [address] Care Team Providers Care Crane Follower Name Role Phone Dayami Lagos DO, Charles E Primary Care Provider Unavailable Encounter Details Date Type Department Care Team (Latest Contact Info) Description 10/29/2006 Outpatient Historical [facility] Medicine- [place] [id number] [place] [phone] Juli Galeano FNP NO ADDRESS ON FILE Viral Infection (Primary Dx); Fever Social History Tobacco Use Types Packs/Day Years Used Date Smoking Tobacco: Never Assessed Comments Unknown Sex and Gender Information Value Date Recorded Sex Assigned at Not on file 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
--- OUTSIDE RECORDS SUMMARY | 2025-05-25 19:54 | XMS_ITS | Encounter Summary ---
Author Organization [facility] Address [address] [place] [address] Care Team Providers Care Content Assistant Name Role Phone Dayami Lagos DO, Charles E Primary Care Provider Unavailable Encounter Details Date Type Department Care Team (Latest Contact Info) Description 03/13/2007 Outpatient Historical [facility] 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
--- OUTSIDE RECORDS SUMMARY | 2025-05-25 19:54 | XMS_ITS | Encounter Summary ---
Author Organization [facility] Address [address] [place] [address] Care Team Providers Care Senior Telecommunications Technician Name Role Phone Dayami Lagos DO, Charles E Primary Care Provider Unavailable Encounter Details Date Type Department Care Team (Latest Contact Info) Description 12/31/2006 Outpatient Historical [facility] Surgery 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
--- OUTSIDE RECORDS SUMMARY | 2025-05-25 19:54 | XMS_ITS | Encounter Summary ---
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
--- OUTSIDE RECORDS SUMMARY | 2025-05-25 19:54 | XMS_ITS | Encounter Summary ---
Author Organization [facility] Address [address] [place] [address] Care Team Providers Care Optical Instrument Assembly Supervisor Name Role Phone Dayami Lagos DO, Charles E Primary Care Provider Unavailable Encounter Details Date Type Department Care Team (Latest Contact Info) Description 01/15/2007 Outpatient Historical [facility] [address] [address] [place] [phone] Oswald Mota MD [address] [place] [phone] Benign Neoplasm of Skin of Other and Unspecified Parts of Face (Primary Dx) Social History Tobacco Use Types Packs/Day Years Used Date Smoking Tobacco: Never Assessed Comments Unknown Sex and Gender Information Value Date Recorded Sex Assigned at Not on file 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
--- OUTSIDE RECORDS SUMMARY | 2025-05-25 19:54 | XMS_ITS | Encounter Summary ---
Author Organization [facility] Address [address] [place] [address] Care Team Providers Care Ex Chef Name Role Phone Dayami Lagos DO, Charles E Primary Care Provider Unavailable Encounter Details Date Type Department Care Team (Latest Contact Info) Description 10/31/2006 Outpatient Historical [facility] [id number] [place] [phone] Juli Galeano FNP NO ADDRESS ON FILE Coxsackie Virus Inf (Primary Dx) Social History Tobacco Use Types Packs/Day Years Used Date Smoking Tobacco: Never Assessed Comments Unknown Sex and Gender Information Value Date Recorded Sex Assigned at Not on file 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
[2025-05-25 20:11] VITALS: BP 103/69; PULSE 76; RESP 18; TEMP 36.9; O2SAT 98; BMI 19.7
[2025-05-25 20:44] LABS: Hematocrit 38.8 % (36-47); Hemoglobin 13.10 g/dL (11.27-16.99); Mean Corpuscular HGB Conc 33.8 g/dL (30-55); Mean Corpuscular Hemoglobin 28.7 pg (27-33); Mean Corpuscular Volume 85.1 fl (85-98); Nucleated Red Blood Cells % 0 %; Platelet Count 207 10^3/cmm (157-399); Red Blood Count 4.56 10^6/uL (3.85-5.65); White Blood Count 3.51 10^3/uL (3.29-11.43)
--- NOTE | 2025-05-25 20:49 | W.ED.ABDPA2 ---
HPI - Abdominal Pain General: Chief Complaint: Abdominal Pain Stated Complaint: Bleeding from Recum\ABD Pain Time Seen by Provider: 05/25/25 20:25 History of Present Illness: 24-year-old female presents emergency room complaining of generalized abdominal discomfort and some rectal bleeding. She states she had a large bowel movement a couple of days ago which had some streaking bright red blood. After that she has had several loose stools with some occasional blood in it. She denies any dysuria urgency or frequency no vomiting. No fever denies dysuria urgency or frequency. Patient seen earlier in the month had ileus like appearance on nurse CT. She had thought she had a miscarriage. Beta-hCG was below detectable limits and her pelvic ultrasound was unremarkable. At that time she is complaining of vaginal bleeding she was referred to gynecology but has not been able to be seen there yet. Associated Symptoms: Reports bloating, diarrhea, hematochezia and nausea; Denies chills, dysuria, fever(s) and vomiting Related Data Previous Rx's ?Medication ?Instructions ?Recorded trazodone 50 mg tablet 50 mg PO .HS #30 tabs 03/10/25 fluoxetine 10 mg capsule (Prozac) 10 mg PO DAILY #30 caps 04/17/25 nitrofurantoin 100 mg PO BID 7 days #14 caps 05/26/25 monohydrate/macrocrystals 100 mg capsule (Macrobid) promethazine 25 mg tablet 25 mg PO Q6H PRN nausea and 05/26/25 vomiting #20 tabs Allergies Allergy/AdvReac Type Severity Reaction Status Date / Time No Known Allergies Allergy Verified 05/15/25 07:47 Review of Systems Const: Denies: fever(s) or chills Card: Denies: chest pain Resp: Denies: dyspnea GI: Reports: abdominal pain, nausea, diarrhea, bloating and hematochezia; Denies: vomiting : Denies: dysuria, urinary frequency or urinary urgency Musc: Denies: neck pain or back pain Skin/Breast: Denies: rash PFSH ED PFSH: Medical History Psychiatric care Migraines No pertinent family history Social History Smoking and tobacco/nicotine status: never used tobacco/nicotine Physical Exam Const: GENERAL APPEARANCE: cooperative ORIENTATION/CONSCIOUSNESS: Yes awake, Yes oriented to person, Yes oriented to place and Yes oriented to time HENMT: COMMON NORMALS: normocephalic, atraumatic and hearing grossly normal bilaterally HEAD & SCALP: normocephalic and atraumatic Resp: COMMON NORMALS: normal respiratory effort, No retractions, No use of accessory muscles and clear to auscultation bilaterally AUSCULTATION: clear to auscultation bilaterally Cardio: COMMON NORMALS: regular rate, regular rhythm and No murmurs present (Cardio) RATE: regular rate RHYTHM: regular rhythm GI: COMMON NORMALS: Soft to palpation and No hepatosplenomegaly present AUSCULTATION: Yes normoactive bowel sounds PALPATION: Yes Soft to palpation, No Tenderness to palpation present (GI), No Guarding due to palpation present (GI) and Yes No hepatosplenomegaly present Extremity: COMMON NORMALS: normal to inspection, capillary refill normal, no clubbing, cyanosis or edema, no calf tenderness and no pedal edema Neuro: SENSORIUM/ORIENTATION: Yes oriented to person, Yes oriented to place and Yes oriented to time Skin: COMMON NORMALS: no rashes or lesions noted GENERAL SKIN EXAM: no rashes or lesions noted Course Vital Signs: Vital signs: Vital Signs Temperature 98.4 F 05/25/25 20:11 Pulse Rate 83 05/26/25 00:33 Respiratory Rate 18 05/25/25 20:11 Blood Pressure 114/74 05/26/25 00:33 Pulse Oximetry 96 05/26/25 00:33 Oxygen Delivery Me thod Room Air 05/26/25 00:33 MDM - Abdominal Pain Medical Decision Making Medical decision making Social determinants: Family is accompanies patient has good family support I reviewed the patient's medical record. I reviewed the patient's current home meds Alternate historians: None Differential diagnosis: Pyelonephritis nephrolithiasis acute appendicitis bowel obstruction ovarian cyst Lab Review: Labs reviewed as found in the chart. UA shows 21-50 red blood cells per high-power field on a clean-catch. Imaging: CT of the abdomen did not show any acute findings no signs of nephrolithiasis. Assessment of risk Level of risk: Moderate Hospitalization considerations: None Reexamination: Repeat exam unremarkable patient stable still complaining some mild abdominal discomfort is better with sleeping when I came to reevaluate the patient. Assessment and plan: Cystitis, rectal bleeding On rectal exam there is some mild rectal irritation at 6 o'clock position no active bleeding is send no bright red blood. Suspect this was caused by what she describes having a large bowel movement and she has had some slight blood streaking the stools with subsequent bowel movements. Abdominal exam is benign no acute findings on labs or CT. Will cover with Macrobid for urine until the culture is resulted. Return if she has further problems recommend clear diet for 1 to 2 days and advance as tolerated Medical Records I reviewed the patient's medical records. Lab Data I reviewed the patient's lab results. 05/25/25 20:37 05/25/25 20:37 Labs/Radiology: Radiology Impressions Abdomen/Pelvis CT 05/25/25 23:42 IMPRESSION: No nephrolithiasis, hydronephrosis, or obstructive uropathy. Laboratory Results WBC 3.51 10^3/uL (3.29-11.43) 05/25/25 20:37 RBC 4.56 10^6/uL (3.85-5.65) 05/25/25 20:37 Hgb 13.10 g/dL (11.27-16.99) 05/25/25 20:37 Hct 38.8 % (36-47) 05/25/25 20:37 MCV 85.1 fl (85-98) 05/25/25 20:37 MCH 28.7 pg (27-33) 05/25/25 20:37 MCHC 33.8 g/dL (30-55) 05/25/25 20:37 RDW 12.4 % (12.1-15.1) 05/25/25 20:37 Plt Count 207 10^3/cmm (157-399) 05/25/25 20:37 MPV 10.0 fL (7.4-10.4) 05/25/25 20:37 Neut % (Auto) 72.0 % 05/25/25 20:37 Lymph % (Auto) 20.2 % 05/25/25 20:37 [place] % (Auto) 6.3 % 05/25/25 20:37 Eos % (Auto) 0.9 % 05/25/25 20:37 Baso % (Auto) 0.6 % 05/25/25 20:37 Neut # (Auto) 2.53 10^3/uL (1.8-7.7) 05/25/25 20:37 Lymph # (Auto) 0.7 10^3/uL (0.8-4.8) L 05/25/25 20:37 [place] # (Auto) 0.2 10^3/uL (0.2-0.9) 05/25/25 20:37 Eos # (Auto) 0.0 10^3/uL (0.0-0.8) 05/25/25 20:37 Baso # (Auto) 0.0 10^3/uL (0.0-0.1) 05/25/25 20:37 Nucleated RBC % (auto) 0 % 05/25/25 20:37 Nucleated RBCs # 0.0 /100WBC 05/25/25 20:37 Sodium 137 mmol/L (136-145) 05/25/25 20:37 Potassium 3.2 mmol/L (3.5-5.1) L 05/25/25 20:37 Chloride 104 mmol/L (98-107) 05/25/25 20:37 Carbon Dioxide 23 mmol/L (22-29) 05/25/25 20:37 Anion Gap 13.2 (5-19) 05/25/25 20:37 BUN 7 mg/dL (6-20) 05/25/25 20:37 Creatinine 0.6 mg/dL (0.5-0.9) 05/25/25 20:37 GFR Calculation 120.8 mL/min (90-130) 05/25/25 20:37 Glucose 107 mg/dL (65-115) 05/25/25 20:37 Calculated Osmolality 282 mOsm/kg (285-295) L 05/25/25 20:37 Calcium 8.6 mg/dL (8.5-10.5) 05/25/25 20:37 Total Bilirubin 0.4 mg/dL (0.15-1.2) 05/25/25 20:37 AST 33 U/L (0-32) H 05/25/25 20:37 ALT 37 U/L (0-33) H 05/25/25 20:37 Alkaline Phosphatase 72 U/L (35-105) 05/25/25 20:37 Total Protein 6.7 g/dL (6.6-8.7) 05/25/25 20:37 Albumin 4.1 g/dL (3.5-5.2) 05/25/25 20:37 Globulin 2.6 g/dL (1.3-4.6) 05/25/25 20:37 HCG, Qual Negative (Negative) 05/25/25 20:37 Urine Color Dark yellow (Yellow) A 05/25/25 22:43 Urine Appearance Cloudy (CLEAR) A 05/25/25 22:43 Urine pH 5.5 (5-7) 05/25/25 22:43 Ur Specific [place] 1.035 (1.005-1.030) H 05/25/25 22:43 Urine Protein 1+ (Negative) A 05/25/25 22:43 Urine Glucose (UA) Negative (Normal) 05/25/25 22:43 Urine Ketones Trace (Negative) 05/25/25 22:43 Urine Blood 1+ (Negative) A 05/25/25 22:43 Urine Nitrate Negative (Negative) 05/25/25 22:43 Urine Bilirubin Negative (Negative) 05/25/25 22:43 Urine Urobilinogen 1.0 mg/dL (Negative) 05/25/25 22:43 Ur Leukocyte Esterase Negative (Negative) 05/25/25 22:43 Urine RBC 21-50 /hpf (0-2) H 05/25/25 22:43 Urine WBC 0-5 /hpf (0-5) 05/25/25 22:43 Ur Squamous Epith Cells 11-20 /hpf (0-5) H 05/25/25 22:43 Amorphous Sediment Not Reportable 05/25/25 22:43 Urine Bacteria 3+ /hpf (NONE) H 05/25/25 22:43 Hyaline Casts 2.46 /lpf 05/25/25 22:43 All radiology interpretation(s) finalized by discharge Discharge Plan Discharge Patient Disposition: Home Clinical Impression: Cystitis, Rectal bleeding Condition: Stable Prescriptions: New nitrofurantoin monohyd/m-cryst [Macrobid] 100 mg capsule 100 mg PO BID 7 Days Qty: 14 0RF Rx Instructions: must administer with a meal/food promethazine 25 mg tablet 25 mg PO Q6H PRN (Reason: nausea and vomiting) Qty: 20 0RF No Action fluoxetine [Prozac] 10 mg capsule 10 mg PO DAILY Qty: 30 1RF trazodone 50 mg tablet 50 mg PO .HS Qty: 30 1RF Discharge Orders: Discharge ED (Routine); Ordered 05/26/25 Ordered By: Joey Quesada Discharge Diet: Clear Liquid Discharge Activity: Increase activity as tolerated Patient Instructions: Abdominal Pain (ED), Opioid Safety, Pain Management, Patient Portal & [place] Instructions Activity Restrictions/Additional Instructions: Thank you for choosing [facility] for your healthcare needs today. It is very important that you follow up as instructed or that you return to the Emergency Department should you have concerns or if your condition changes or worsens in any way. Emergency department visits are focused on emergent conditions, in some cases you may require further evaluation on an outpatient basis. You were seen in the emergency room with complaints of flank pain and some rectal bleeding. On exam. She has some irritation to the rectal area which suspect is caused by passage of a large stool as you had described as probably contributing to bleeding now. CT of the abdomen did not show any acute abnormalities. Urine testing showed some blood in the urine. Will culture the urine you have been started on oral antibiotics for possible bladder infection until the culture returns. Recommend clear liquid diet for the next 24 to 48 hours and advance as tolerated. Follow-up with your primary care provider if you have any further please with bowel movements. (Please note that included in your discharge packet is information concerning opioid safety and pain management. This information is given to all patients were discharged from the ER regardless of their discharge diagnosis or the medicines they usually take or are prescribed.) Print Language: Qatari Coding Level of Care Code ED Microcomputer Support Specialist for Devang Franklin
[2025-05-25 21:02] LABS: HCG, Serum Qual Negative (Negative)
[2025-05-25 21:03] LABS: Alanine Aminotransferase 37 U/L (0-33); Albumin Level 4.1 g/dL (3.5-5.2); Alkaline Phosphatase 72 U/L (35-105); Anion Gap 13.2 (5-19); Aspartate Amino Transferase 33 U/L (0-32); Blood Urea Nitrogen 7 mg/dL (6-20); Calcium 8.6 mg/dL (8.5-10.5); Carbon Dioxide 23 mmol/L (22-29); Chloride 104 mmol/L (98-107); Globulin 2.6 g/dL (1.3-4.6); Glucose 107 mg/dL (65-115); Osmolality Calculated 282 mOsm/kg (285-295); Potassium 3.2 mmol/L (3.5-5.1); Sodium 137 mmol/L (136-145); Total Protein 6.7 g/dL (6.6-8.7)
[2025-05-25 21:07] VITALS: BP 113/80; PULSE 80; O2SAT 97
[2025-05-25 22:30] VITALS: BP 89/60; PULSE 84; O2SAT 97
[2025-05-25 23:03] LABS: Glucose Urine UA Negative (Normal); Nitrate Urine Negative (Negative)
[2025-05-25 23:08] LABS: Add Urine Microscopic? YES
[2025-05-25 23:36] LABS: Specific Gravity, Urine 1.035 (1.005-1.030)
--- NOTE | 2025-05-25 23:42 | CTR_ITS ---
PROCEDURE INFORMATION: Exam: CT Abdomen And Pelvis Without Contrast Exam date and time: 05/25/2025 11:59 PM Age: 24 years old Clinical indication: Abdominal pain; Acute; Additional info: Flank pain TECHNIQUE: Imaging protocol: Computed tomography of the abdomen and pelvis without contrast. Radiation optimization: All CT scans at this facility use at least one of these dose optimization techniques: automated exposure control; mA and/or kV adjustment per patient size (includes targeted exams where dose is matched to clinical indication); or iterative reconstruction. COMPARISON: CT abdomen pelvis w con* [id number] 03/06/2025 8:05 PM RADIATION DOSE METRICS: Total DLP (mGy-cm): 303.49 FINDINGS: Liver: Normal. No mass. Gallbladder and biliary ducts: Normal. No calcified stones. No ductal dilation. Pancreas: Normal. No ductal dilation. Spleen: Normal. No splenomegaly. Adrenal glands: Normal. No mass. Kidneys and ureters: No nephrolithiasis, hydronephrosis, or obstructive uropathy. Stomach and bowel: Unremarkable. No obstruction. No mucosal thickening. Appendix: No evidence of appendicitis. Intraperitoneal space: Unremarkable. No free air. No significant fluid collection. Vasculature: Unremarkable. No abdominal aortic aneurysm. Lymph nodes: Unremarkable. No enlarged lymph nodes. Urinary bladder: Unremarkable as visualized. Reproductive: Left ovarian cyst measures 2.4 cm Bones/joints: Unremarkable. No acute fracture. Soft tissues: Unremarkable. CT/CT kidney stone [id number] IMPRESSION: No nephrolithiasis, hydronephrosis, or obstructive uropathy.
[2025-05-26 00:33] VITALS: BP 114/74; PULSE 83; O2SAT 96
== END 2025-05-26 00:48 | disposition home or self-care (01) ==
PROVIDERS: Emergency Provider Family Medicine
DX: N30.90 Cystitis, unspecified without hematuria (principal); K62.5 Hemorrhage of anus and rectum
CPT/HCPCS: 36415; 74176; 80053; 81001; 84703; 85025; 96374; 96375; 99285; J0780; J1885; J7030